=== PATIENT | male | born 1960 | race Caucasian/White ===

== ENCOUNTER 2019-02-23 00:11 | Outpatient (CLI) | payer OTHER, SELFPAY ==
--- NOTE | 2019-02-23 08:45 | DI.RAD_ITS ---
SYMPTOMS/DIAGNOSIS: WORSENING DYSPHAGIA, R13.10 MODIFIED BARIUM SWALLOW: Fluoroscopy Time: 1.22 min Modified barium swallow was performed under the supervision of Jess Perez. A series of ingested material passed easily through the pharynx and esophagus. No gross esophageal abnormality is seen. Initially the pharynx appeared to contain a large quantity of secretions and the mucosa could not be evaluated. CONCLUSION: No evidence of obstruction. The anatomy of the pharynx and larynx is not well evaluated, and if there is clinical suspicion of pharyngeal abnormality, additional evaluation with direct laryngoscopy would be recommended.
[2019-02-23] MEDS: Barium Sulfate 60% W/V 355 ML BTL PO ×2 (09:19→09:20)
[2019-02-23] MEDS: Barium Sulfate 700 MG TAB PO (09:21)
== END 2019-02-23 00:31 ==
PROVIDERS: PCP Nurse Practitioner Adult Health; Visit Provider Otolaryngology Otolaryngology/Facial Plastic Surgery
DX: R13.10 Dysphagia, unspecified (principal)
CPT/HCPCS: 76000; 74220

== ENCOUNTER 2019-02-23 01:14 | Outpatient (CLI) | payer OTHER, SELFPAY | END 2019-02-23 01:34 | PROVIDERS: PCP Nurse Practitioner Adult Health | DX: R13.14 Dysphagia, pharyngoesophageal phase (principal); R13.12 Dysphagia, oropharyngeal phase | CPT/HCPCS: 92611 ==

== ENCOUNTER 2023-04-15 14:31 | Inpatient (IN) | payer MEDICAID, SELFPAY ==
[2023-04-15] VITALS (85 sets, daily range): BP systolic 105–186; BP diastolic 51–103; PULSE 60–90; RESP 13–30; TEMP 36.8–37; O2SAT 87–100
--- NOTE | 2023-04-15 14:30 | RT.EKG_ITS ---
APPROVED REPORT Exam: Resting ECG Reason for Exam: Syncope Patient Location: E HR:84 bpm ECG Measurements Heart Rate 84 AXIS RI 134 P 31 QRSd 94 QRS -55 QT 368 T 53 QTc 427 Conclusion Sinus rhythm...normal P axis, V-rate 60- 99 Multiform ventricular premature complexes...short R-R, variable morphology Left anterior fascicular block...axis(240,-40), init forces inf sinus rhythm, left axis, normal intervals, PVC, non ischemic
--- NOTE | 2023-04-15 14:30 | DI.RAD_ITS ---
Exam(s) XR CHEST 2V PA LATERAL EXAM: XR CHEST 2V PA LATERAL CLINICAL HISTORY: syncope. TECHNIQUE: 2D digital imaging was performed. COMPARISON: No exams were available for comparison FINDINGS: 2 views: Heart size is normal. The mediastinum is not widened. Lungs are clear. No infiltrates nor pleural effusions. IMPRESSION: No acute pulmonary findings. DATA REPOSITORY: RADIATION DOSE DELIVERED:
--- NOTE | 2023-04-15 14:40 | ED.GENADUL_ITS ---
Discharge Plan Discharge Details Chief Complaint: [id number] Primary Care Provider: Antonia Falcon ED Provider: Woodrow Dugan Home Meds and New Rx's Prescriptions: No Action aspirin [Olvin Low Dose Aspirin] 81 MG tablet,delayed release (DR/EC) 81 mg PO DAILY ranitidine HCl 75 MG tablet 75 mg PO DAILY Patient Comments: PT STATES HE DOES NOT TAKE ANY LONGER pantoprazole 40 MG tablet,delayed release (DR/EC) 40 mg PO DAILY venlafaxine 150 mg Capsule,Extended Release 24hr 150 mg PO DAILY melatonin 3 mg Tablet 6 mg PO DAILY tamsulosin 0.4 mg Capsule 0.4 mg PO DAILY calcium carbonate [Calcium Antacid] 200 mg calcium (500 mg) Tablet,Chewable 1,000 mg PO PRN PRN Medical Decision Making 62-year-old male brought in from correctional facility for evaluation of syncopal episode and left upper extremity numbness/paresthesia that began in the setting of activity in the yard and direct sun exposure approximately 1 to 2 hours ago. Brief syncopal spell with loss of consciousness sustaining superficial abrasion hematoma to left frontal scalp hemostatic no foreign bodies. Patient is alert oriented cranial nerves II through XII intact 5 out of 5 strength upper and lower extremities no ataxia appreciated. Patient feeling better with resolving paresthesia. Likely heat related syncopal also consider vasovagal versus orthostatic versus dehydration versus mild heatstroke versus less likely CVA versus less likely ACS PE or aortic pathology. Patient is afebrile nontoxic normotensive. Neurologically intact. Will obtain screening labs imaging clinic CT head chest x-ray, EKG. Fluids rest close reassessment if continued improvement and normal evaluation will be discharged to correctional facility 16: [address] findings with radiologist who was concerned for abnormality in right basal ganglia. Stat MRI has been ordered. Disposition pending MRI results. HPI General Date/Time Provider Initiated Documentation: 04/15/23 14:34 . HPI Narrative: 62-year-old male currently incarcerated, brought in for evaluation of syncopal episode, patient was outside in the yard in direct sun for extended period of time felt lightheaded felt a tingling on the left side of his body specifically his left upper extremity collapsed to the ground hitting his head brief loss of consciousness, after regaining consciousness patient had resolving but persistent left upper extremity numbness. 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 Feeling better/improvement of symptoms from initial onset. No chest pain or shortness of breath. No history of cardiac disease or stroke in the past. No blood thinner use. Related Data Home Medications Medication Instructions Recorded Confirmed Olvin Low Dose Aspirin 81 mg 81 mg PO DAILY 10/05/17 10/29/17 tablet,delayed release (aspirin) ranitidine HCl 75 mg tablet 75 mg PO DAILY 10/05/17 10/29/17 pantoprazole 40 mg tablet,delayed 40 mg PO DAILY 10/29/17 04/15/23 release calcium carbonate 200 mg calcium 1,000 mg PO PRN PRN 04/15/23 04/15/23 (500 mg) chewable tablet (Calcium Antacid) melatonin 3 mg tablet 6 mg PO DAILY 04/15/23 04/15/23 tamsulosin 0.4 mg capsule 0.4 mg PO DAILY 04/15/23 04/15/23 venlafaxine 150 mg 150 mg PO DAILY 04/15/23 04/15/23 capsule,extended release 24 hr Allergies Allergy/AdvReac Type Severity Reaction Status Date / Time No Known Allergies Allergy Unverified 04/15/23 14:38 General Stated Complaint: [id number] JULISSA: 3 Review of Systems Narrative: Review of Systems Constitutional: negative Eyes: negative ENT: negative Cardiovascular: Syncope Respiratory: negative Gastrointestinal: negative : negative Musculoskeletal: negative Skin: negative Neurologic: Paresthesia/numbness of extremity left Psych: negative PFSH Medical History Congenital hand deformity GERD (gastroesophageal reflux disease) Surgical History (Updated 11/10/17 @ 13:21 by Johana Moraes) Appendectomy EGD - MAC (10/29/17) Reconstruction right hand Social History Smoking/Tobacco Use Status: Never Smoking risk assessment performed?: Yes Drug use: Never Exam Narrative Exam Narrative: Physical Examination General: alert, awake, cooperative, resting comfortably, no acute distress HEENT: normocephalic, 4 cm left frontal scalp hematoma with overlying abrasion hemostatic no foreign bodies; PERRL, EOM intact, conjunctiva normal; no nasal discharge; moist mucous membranes, oral and pharyngeal mucosa normal, tolerating secretions Neck: supple, trachea midline; full ROM Chest: normal to inspection Respiratory: normal respiratory effort, speaking in full sentences, clear to auscultation, no wheezing, rales or rhonchi Cardiac: regular rate, regular rhythm, S1S2 intact, no murmurs rubs or gallops GI: abdomen soft, non-tender, non-distended; no palpable mass or hepatosplenomegaly Skin: no lesions, rashes or trauma appreciated Neuro: AAOx3, normal speech, moving all extremities; cranial nerves II through XII intact 5-5 strength upper and lower extremities, no ataxia appreciated Extremities: No trauma, moving all extremities Psych: Appropriate mood and affect Course Vital Signs Vital signs: Vital Signs Temperature 37.0 C 04/15/23 14:32 Pulse 81 04/15/23 14:32 Respiratory Rate 16 04/15/23 14:32 Blood Pressure 138/77 04/15/23 14:32 Pulse Oximetry 99 04/15/23 14:32 Temperature 37.0 C 04/15/23 14:32 Temperature Source Oral 04/15/23 14:32 Pulse 81 04/15/23 14:32 Respiratory Rate 16 04/15/23 14:32 Blood Pressure 138/77 04/15/23 14:32 Pulse Oximetry 99 04/15/23 14:32 Oxygen Delivery Method Room Air 04/15/23 14:32 Oxygen Flow Rate 0 04/15/23 14:32
[2023-04-15] MEDS: Normal Saline 1,000 ML 1000 ML IV (14:51)
[2023-04-15 14:58] LABS: Abs Immature Grans 0.01 10^3/uL (0.0-0.06); Absolute Basophil Count 0.02 10^3/uL (0.0-0.2); Absolute Eosinophil Count 0.09 10^3/uL (0.0-0.7); Absolute Lymphocyte Count 0.97 10^3/uL (1.2-3.4); Absolute Monocyte Count 0.54 10^3/uL (0.1-0.8); Absolute Neutrophil Count 4.35 10^3/uL (1.2-6.7); Basophils % 0.3; Eosinophils % 1.5; HCT 44.2 % (40.0-50.0); HGB 15.2 g/dL (13.5-17.5); Immature Grans % 0.2; Lymphocytes % 16.2; MCH 31.5 pg (27.0-33.0); MCHC 34.4 % (32.0-36.0); MCV 92 fL (80-95); MPV 10.4 fL (8.0-11.0); Neutrophils % 72.8; Platelet Count 214 10^3/uL (130-400); RBC 4.83 10^6/uL (4.36-5.78); RDW 12.4 % (11.8-14.1); RDW-SD 41.8 fL; WBC 5.98 10^3/uL (4.4-10.8)
[2023-04-15 15:16] LABS: PTT Activated 22.7 sec (21.5-31.9); Prothrombin Time 9.7 sec (9.3-11.0)
--- NOTE | 2023-04-15 15:16 | DI.CT_ITS ---
Exam(s) CT HEAD WO EXAM: CT HEAD WO CLINICAL HISTORY: syncope, left frontal scalp abrasion/hematoma. TECHNIQUE: Imaging Protocol: Axial computed tomography images with coronal and sagittal reformatted images were created and reviewed COMPARISON: No exams were available for comparison FINDINGS: SMALL LEFT FRONTAL SCALP HEMATOMA. There are no skull fractures. There is no fluid in the visualized paranasal sinuses. There is a 9 x 6 mm hyperdensity in region of the right basal ganglia without similar finding on the left side. May represent area of hemorrhage, as opposed to calcification. No other similar appearin g areas in the brain. No extra-axial fluid collections. Ventricles are not enlarged or shifted and there is no blood within the ventricular system nor within the basal cisterns. IMPRESSION: There is a 9 x 6 millimeter area of hyperdensity in the right basal ganglia region. May represent sm all area of hemorrhage versus asymmetric calcification. Recommend MRI. Called by myself to ER physician. RADIATION DOSE DELIVERED: 786.31mGy.cm Total DLP DATA REPOSITORY: All CT scans at this facility are submitted to the National Radiology Data Registry (NRDR) Dose Index Registry (DIR) with the [employer] (ACR). RADIATION OPTIMIZATION: All CT scans at this facility use at least one of these dose optimization te chniques: automated exposure control; mA and/or kV adjustment per patient size (includes targeted exa ms where dose is matched to clinical indication); or iterative reconstruction.
[2023-04-15 15:18] LABS: Creatine Kinase 47 U/L (39-308); Troponin I < 50 ng/L (<or=60)
[2023-04-15 15:25] LABS: ALT 18 U/L (16-63); AST 15 U/L (15-37); Albumin 3.8 g/dL (3.4-5.0); Alkaline Phosphatase 47 U/L (46-116); Anion Gap 9.9 mmol/L (3-11); BUN 18 mg/dL (7-18); Bilirubin, Total 0.5 mg/dL (0.2-1.0); CO2 29.1 mmol/L (21.0-32.0); CREATININE 1.2 mg/dL (0.70-1.30); Calcium 9.5 mg/dL (8.5-10.1); Chloride 103 mmol/L (98-107); Glucose 152 mg/dL (74-106); Potassium 4.1 mmol/L (3.5-5.1); Sodium 142 mmol/L (136-145); Total Protein 7.8 g/dL (6.4-8.2)
--- NOTE | 2023-04-15 15:30 | DI.MRI_ITS ---
Exam(s) MR BRAIN WO EXAM: MR BRAIN WO CLINICAL HISTORY: LUE numb; right basal ganglia abnormality on CT TECHNIQUE: Multiplanar multisequence MRI of the brain was performed. COMPARISON: No exams were available for comparison FINDINGS: CEREBRAL PARENCHYMA: There is an area of signal abnormality the medial inferior right basal ganglia-anterior right thalamu s which is hypointense on T2, isointense on T1, and exhibits significant susceptibility artifact cons istent with focal area of hemorrhage at this level corresponding to the finding on the CT scan. No o ther similar findings elsewhere in the brain. There are few small foci of periventricular white matter signal abnormality consistent with chronic i schemic changes. No areas of restricted diffusion. There is no significant focal signal abnormality evident on diffusion imaging to suggest acute ischem ic event. PITUITARY GLAND: No mass nor parasellar abnormality. No obvious abnormality in the cavernous sinuses. FLOW VOIDS: The expected flow void are noted. No evidence of obvious aneurysm nor obvious vascular ma lformation. PARANASAL SINUSES: The visualized paranasal sinuses appear unremarkable. No obvious finding ORBITS: No obvious findings. IMPRESSION: Area of signal abnormality in the anterior right thalamus which exhibits signal characteristics of ac [place] hemorrhage. No significant surrounding edema. No shift. Recommend repeat CT/MRI scan in 24 rahel rs. DATA REPOSITORY:
[2023-04-15] MEDS: Labetalol 100 MG/20 ML VIAL 10 MG IVP ×2 (17:33→18:30)
[2023-04-15 18:56] LABS: Troponin I < 50 ng/L (<or=60)
--- NOTE | 2023-04-15 19:15 | DI.CT_ITS ---
Exam(s) CT BRAIN NECK CTA EXAM: CT BRAIN NECK CTA CLINICAL HISTORY: thalamus hemorrhage. TECHNIQUE: Imaging Protocol: Axial CT angiography was performed with multi-slice acquisition and mu lti-planar and 3D reconstructions. CONTRAST MATERIAL: Intravenous: Omnipaque 350 Contrast volume:structured data in ml COMPARISON: CT CT HEAD WO from 04/15/2023 MR MR BRAIN WO from 04/15/2023 FINDINGS: CT Head W contrast: Ventricles and Extra axial spaces: Normal in size and morphology for the patient's age. Hemorrhage: Small right thalamic hemorrhage again noted. Cerebral parenchyma: Normal. Midline shift: None. Brainstem/Cerebellum: Normal. Calvarium: Normal. Visualized Paranasal sinuses/Mastoids: Clear. Soft Tissues: Unremarkable. Enhancement: Normal. CTA Brain W: Internal Carotid Arteries: Petrous: Normal. Cavernous: Normal. Cerebral: Normal. Middle Cerebral Arteries: Right: No aneurysm, occlusion or significant stenosis. Left: No aneurysm, occlusion or significant stenosis. Anterior Cerebral Arteries: Right: No aneurysm, occlusion or significant stenosis. Left: No aneurysm, occlusion or significant stenosis. Posterior cerebral Arteries: Right: No aneurysm, occlusion or significant stenosis. Left: No aneurysm, occlusion or significant stenosis. Vertebral Arteries: Right: No aneurysm, occlusion or significant stenosis. Left: Hypoplastic but patent. No aneurysm, occlusion or significant stenosis. Basilar Artery: No aneurysm, occlusion or significant stenosis. CTA Neck W: Common Carotid: No visible plaque. Right: No dissection, occlusion or significant stenosis. Left: No dissection, occlusion or significant stenosis. External Carotid: No visible plaque. Right: No dissection, occlusion or significant stenosis. Left: No dissection, occlusion or significant stenosis. Internal Carotid: No visible plaque. Right: No dissection, occlusion or significant stenosis. Left: No dissection, occlusion or significant stenosis. Vertebral Artery: No visible plaque. Right: No dissection, occlusion or significant stenosis. Left: Hypoplastic but patent. No dissection, occlusion or significant stenosis. Lung Apices: Normal. Bones: Degenerative changes in the cervical spine. No acute abnormality. Soft Tissues: Normal. IMPRESSION: 1. CT a brain: Normal CTA examination of the [place]. 2. CT head: Small right thalamic hemorrhage. No evidence of AV malformation. 3. Normal CTA examination of the neck. RADIATION DOSE DELIVERED: 1,256.56mGy.cm Total DLP DATA REPOSITORY: All CT scans at this facility are submitted to the National Radiology Data Registry (NRDR) Dose Index Registry (DIR) with the [employer] (ACR). RADIATION OPTIMIZATION: All CT scans at this facility use at least one of these dose optimization te chniques: automated exposure control; mA and/or kV adjustment per patient size (includes targeted exa ms where dose is matched to clinical indication); or iterative reconstruction.
--- NOTE | 2023-04-15 19:17 | NUR.NOTE ---
@[email or web address] ordered from [facility]. Medication unavailable on unit. Goal MAP per CLAY Palomo is systolic 130
[2023-04-15] MEDS: Normal Saline - Diluent 50 ML VIAL IJ (19:46)
[2023-04-15] MEDS: Normal Saline Flush 10 ML SYR IVP (19:47)
[2023-04-15] MEDS: Omnipaque 350 MG/ML 100 ML BTL IJ (19:47)
--- NOTE | 2023-04-15 20:15 | RT.EKG_ITS ---
APPROVED REPORT Exam: Resting ECG Reason for Exam: repeat Patient Location: E HR:75 bpm ECG Measurements Heart Rate 75 AXIS OH 153 P 32 QRSd 101 QRS -44 QT 394 T 31 QTc 441 Conclusion Sinus rhythm...normal P axis, V-rate 60- 99 Ventricular premature complex...V complex w/ short R-R interval Left anterior fascicular block...axis(240,-40), init forces inf
--- NOTE | 2023-04-15 20:15 | RT.EKG_ITS ---
APPROVED REPORT Exam: Resting ECG Reason for Exam: rhythm change Patient Location: E HR:68 bpm ECG Measurements Heart Rate 68 AXIS ID 140 P 0 QRSd 113 QRS -45 QT 402 T 260 QTc 436 Conclusion Sinus rhythm...normal P axis, V-rate 60- 99 Ventricular premature complex...V complex w/ short R-R interval Left anterior fascicular block...axis(240,-40), init forces inf Nonspecific T abnormalities, diffuse leads...T <-0.10mV, ant/lat/inf
[2023-04-15] MEDS: niCARdipine 25 MG in Normal Saline 240 ML 5 MG IV (20:30)
--- NOTE | 2023-04-15 20:40 | NUR.NOTE ---
@2009. Heart rhythm change. Pt now in bigeminy. C/o feeling increased dizziness when my eyes are closed Reported to CLAY Palomo.
--- NOTE | 2023-04-15 20:43 | DI.VRAD_ITS ---
PROCEDURE INFORMATION: Exam: CTA Head With Contrast, Arteriography Exam date and time: 04/15/2023 7:47 PM Age: 62 years old Clinical indication: Thalamus hemorrhage TECHNIQUE: Imaging protocol: Computed tomographic angiography of the head with contrast. Exam focused on the arteries. 3D rendering (Not supervised by radiologist): MIP and/or 3D reconstructed images were created by the technologist. Contrast material: OMNIPAQUE 350; Contrast volume: 100 ml; Contrast route: INTRAVENOUS (IV); COMPARISON: MR BRAIN WO 04/15/2023 3:55 PM FINDINGS: ANTERIOR CIRCULATION: Right internal carotid artery: Intracranial segment is patent with no significant stenosis. No aneurysm. Right middle cerebral artery: No occlusion or significant stenosis. No aneurysm. Right anterior cerebral artery: No occlusion or significant stenosis. No aneurysm. Left internal carotid artery: Intracranial segment is patent with no significant stenosis. No aneurysm. Left middle cerebral artery: No occlusion or significant stenosis. No aneurysm. Left anterior cerebral artery: No occlusion or significant stenosis. No aneurysm. POSTERIOR CIRCULATION: Right vertebral artery: No occlusion or significant stenosis. No aneurysm. Left vertebral artery: The left vertebral artery is hypoplastic. Basilar artery: No occlusion or significant stenosis. No aneurysm. Right posterior cerebral artery: No occlusion or significant stenosis. No aneurysm. Left posterior cerebral artery: No occlusion or significant stenosis. No aneurysm. Brain: No definite mass effect or midline shift. Cerebral ventricles: No ventriculomegaly. Bones/joints: Unremarkable. No acute fracture. Soft tissues: Subcutaneous swelling noted in the left frontal region. IMPRESSION: 1. No evidence of arterial stenosis or occlusion. 2. No aneurysm or vascular malformation. PROCEDURE INFORMATION: Exam: CTA Neck With Contrast Exam date and time: 04/15/2023 7:47 PM Age: 62 years old Clinical indication: Other: Thalamus hemorrhage TECHNIQUE: Imaging protocol: Computed tomographic angiography of the neck with contrast. 3D rendering (Not supervised by radiologist): MIP and/or 3D reconstructed images were created by the technologist. Contrast material: OMNIPAQUE 350; Contrast volume: 100 ml; Contrast route: INTRAVENOUS (IV); COMPARISON: MR BRAIN WO 04/15/2023 3:55 PM FINDINGS: Right common carotid artery: No stenosis. No dissection or occlusion. Right internal carotid artery: No stenosis of the extracranial segment. No dissection or occlusion. Right external carotid artery: No occlusion or stenosis of the origin. Left common carotid artery: No stenosis. No dissection or occlusion. Left internal carotid artery: No stenosis of the extracranial segment. No dissection or occlusion. Left external carotid artery: No occlusion or stenosis of the origin. Right vertebral artery: No stenosis. No dissection or occlusion. Left vertebral artery: No stenosis. No dissection or occlusion. Soft tissues: Normal. No significant soft tissue swelling. Bones/joints: No acute fracture. IMPRESSION: No stenosis or occlusion. REFERENCES: NASCET CRITERIA. The degree of stenosis in the cervical segment of the internal carotid artery is based on NASCET criteria. Normal is no stenosis. Mild is less than 50% stenosis. Moderate is 50-69% stenosis. Severe is 70% to 99% stenosis. Total occlusion is no detectable patent lumen. Dictated and Authenticated by: Karolnie Owusu MD. Ordering:PAT Palomo MD
--- NOTE | 2023-04-15 21:38 | HPE_ITS ---
Date of service: 04/15/23 Time of Service: 21:38 Assessment and Plan Assessment and plan (1) Hemorrhagic cerebrovascular accident (CVA): Start date: 04/15/23 Status: Acute Assessment and plan: This is a 62-year-old gentleman who had sudden onset of neurological deficit symptoms in his left upper extremity and collapse with syncope most likely with the syncope associated with his acute CVA. He had no symptoms prior to the event other than being exposed to extreme heat in the yard at the shelter. He denies any diaphoresis or dizziness but simply passed out and hit the ground without having memory of that event. He did have an abrasion over his left fo rehead which appears without sequela by imaging. Since there was some suggestion of hemorrhage on MRI of the brain follow-up CT was done which shows stability of the right thalamic stroke and he will have a follow-up CT of the head in the morning. He has been observed with telemetry and neurochecks every 2 hours. His risk factors for thrombotic CVA appear to be low but he was not on aspirin and he may have prediabetes and sleep apnea by history but no chronic hypertension documented and and he is not overweight. He also is not a smoker. He was given a high-dose atorvastatin which will be continued and once cleared by neurology he could start on a antiplatelet therapy such as aspirin. His hemorrhage at this point and have his use of anticoagulation or antiplatelet therapy. His blood pressure was elevated and will be controlled with a systolic below 140 but keep the systolic above 100 to avoid extension of his area of stroke. He is a full code. (2) Syncope and collapse: Start date: 04/15/23 Status: Acute Assessment and plan: As a consequence of CVA but monitor cardiac rhythm overnight and follow-up echocardiogram with bubble study for further evaluation in the morning. (3) HTN (hypertension): Start date: 04/15/23 Status: Acute Assessment and plan: No history of hypertension as an outpatient but elevated systolic blood pressure with his acute CVA and with hemorrhage this will be controlled with systolic below 140 but above 100. Patient was started on a Cardene infusion. Titrate to systolic blood pressure. Long-term he may require treatment for hypertension but this can be evaluated once he is stable. Follow-up echocardiogram. Cardiac monitoring overnight. (4) Congenital hand deformity: Assessment and plan: With dysfunction of patient's right hand being [id number]. He did have neurological symptoms in his left lower extremity but this did not include weakness and this has resolved. Physical therapy and Occupational Therapy will evaluate. (5) GERD (gastroesophageal reflux disease): Assessment and plan: Continue PPI. 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 (7) Depression with anxiety: Status: Chronic Assessment and plan: Patient is on Effexor chronically and this will be continued. He did have some concerns that this might be causing ringing in his ears and he can address this with his PCP. History of Present Illness History of Present Illness Chief Complaint: Left upper extremity numbness and syncopal episode. Narrative: This is a 62-year-old male patient who has a history of GERD, BPH with CEBALLOS and borderline diabetes though not on medical therapy as well as possible sleep apnea with loud snoring and apneic spells witnessed by his roommate at the shelter. He is not overweight. He has been incarcerated for the last 6 years. He was going to the [facility] in the past. He has never had hypertension and is not a smoker. He was walking in the yard at the facility and extreme heat being over 90 ?F when he felt tingling and numbness in his left upper extremity which is his dominant hand having had a deformity since and surgery on his right hand and upper extremity which is not as usable. After the onset of these neurological symptoms he had a syncopal episode and does not remember hitting the ground where he struck his left head with an abrasion and contusion. He was brought to the ED for evaluation and CT showed no sequela from his fall over his forehead other than the abrasion and soft tissue swelling but he did have what appeared to be a right thalamic stroke in the basal ganglia with a small amount of hemorrhage confirmed by MRI. CTA of the head and neck showed no large vessel occlusions. Repeat CT of the head was stable and will be repeated again in the morning. Neurology was consulted and did advise blood pressure control with the patient having elevated systolic blood pressure above 140 with a hemorrhage and he was started on a Cardene infusion with labetalol not being effective in the ED. He is not chronically on antihypertensives. He denies any headache other than the soreness around his contusion over the left upper scalp and forehead. His numbness and tingling in left upper extremity resolved. Patient will be admitted for frequent neurochecks and follow-up CT of the head in the morning as well as monitoring of his cardiac status and echocardiogram. He will be placed on high-dose statin and blood pressure control long-term may be accomplished with metoprolol if needed. He should be evaluated for sleep apnea this is one of his risk factors and watch more closely for hypertension though he has had no elevated blood pressures with follow-up in the facility. His only other risk factor would be his borderline diabetes which could be evaluated. He has a full code. Review of Systems Narrative: 13 point review of systems otherwise unrevealing or stable. PFSH All Active Problems (Updated 04/16/23 @ 01:28 by Miguel Deshpande) Depression with anxiety (Chronic) BPH with obstruction/lower urinary tract symptoms (Chronic) Syncope and collapse (Acute) HTN (hypertension) (Acute) Hemorrhagic cerebrovascular accident (CVA) (Acute) Medical History Congenital hand deformity GERD (gastroesophageal reflux disease) Surgical History Appendectomy EGD - MAC (10/29/17) Reconstruction right hand Social History Smoking/Tobacco Use Status: Never Smoking risk assessment performed?: Yes Drug use: Never Meds Allergies and Home Medications Allergies Allergy/AdvReac Type Severity Reaction Status Date / Time No Known Allergies Allergy Unverified 04/15/23 14:38 Home Medications Medication Instructions Recorded Confirmed Type Olvin Low Dose Aspirin 81 mg 81 mg PO DAILY 10/05/17 10/29/17 History tablet,delayed release (aspirin) ranitidine HCl 75 mg tablet 75 mg PO DAILY 10/05/17 10/29/17 History pantoprazole 40 mg tablet,delayed 40 mg PO DAILY 10/29/17 04/15/23 History release calcium carbonate 200 mg calcium 1,000 mg PO PRN PRN 04/15/23 04/15/23 History (500 mg) chewable tablet (Calcium Antacid) melatonin 3 mg tablet 6 mg PO DAILY 04/15/23 04/15/23 History tamsulosin 0.4 mg capsule 0.4 mg PO DAILY 04/15/23 04/15/23 History venlafaxine 150 mg 150 mg PO DAILY 04/15/23 04/15/23 History capsule,extended release 24 hr Exam Narrative Exam Narrative: General: Patient appears appropriate for age, thinly built and short stature, alert and oriented x3 with some slowed speech but appropriate. He is in no acute distress. HEENT: Normocephalic, traumatic head over the left forehead with an abrasion with dried blood and slight swelling otherwise atraumatic face with normal features. Eyes with pupils equal and react to light symmetrically, extraocular movement tact and sclera anicteric. Oropharynx with moist mucosa and normal dentition. Neck: Supple without JVD and no auscultated bruits. Back: Stooped posture without CVA tenderness. Lungs: Clear to auscultation and percussion with no focalizing rales or rhonchi. Heart: Regular rate and rhythm with no murmurs or gallops appreciated. Abdomen: Normal contour, soft and nontender to palpation with no palpable hepatosplenomegaly. Bowel sounds positive all quadrants. Genitalia/rectal: Exam deferred. Extremities: Without clubbing, cyanosis or pitting edema. There is slight flexion contracture and atrophy with deformity of his right hand and forearm where he has had corrective surgery with a defect by history. Pulses are intact of the upper and lower extremities. Skin: Normal color, warm and dry. Abrasion over left forehead and scalp with dried blood. Neuro: Cranial nerves II through XII grossly intact. No focalizing motor deficits except for the chronic weakness in his right distal upper extremity. No tremor. No Babinski's. Psych: Slightly anxious affect with pressured speech, normal mood. No abnormal thought processes. Remote and recent memory appear to be grossly intact. Results Imaging Imaging Studies: Exam: CTA Head With Contrast, Arteriography Exam date and time: 04/15/2023 7:47 PM Age: 62 years old Clinical indication: Thalamus hemorrhage TECHNIQUE: Imaging protocol: Computed tomographic angiography of the head with contrast. Exam focused on the arteries. 3D rendering (Not supervised by radiologist): MIP and/or 3D reconstructed images were created by the technologist. Contrast material: OMNIPAQUE 350; Contrast volume: 100 ml; Contrast route: INTRAVENOUS (IV);? COMPARISON: MR BRAIN WO 04/15/2023 3:55 PM FINDINGS: ANTERIOR CIRCULATION: Right internal carotid artery: Intracranial segment is patent with no significant stenosis. No aneurysm. Right middle cerebral artery: No occlusion or significant stenosis. No aneurysm.? Right anterior cerebral artery: No occlusion or significant stenosis. No aneurysm.? Left internal carotid artery: Intracranial segment is patent with no significant stenosis. No aneurysm. Left middle cerebral artery: No occlusion or significant stenosis. No aneurysm. ? Left anterior cerebral artery: No occlusion or significant stenosis. No aneurysm.? POSTERIOR CIRCULATION: Right vertebral artery: No occlusion or significant stenosis. No aneurysm.? Left vertebral artery: The left vertebral artery is hypoplastic. Basilar artery: No occlusion or significant stenosis. No aneurysm. Right posterior cerebral artery: No occlusion or significant stenosis. No aneurysm.? Left posterior cerebral artery: No occlusion or significant stenosis. No aneurysm.? Brain: No definite mass effect or midline shift. Cerebral ventricles: No ventriculomegaly. Bones/joints: Unremarkable. No acute fracture. Soft tissues: Subcutaneous swelling noted in the left frontal region. IMPRESSION: 1. ? No evidence of arterial stenosis or occlusion. 2. ? No aneurysm or vascular malformation. PROCEDURE INFORMATION: Exam: CTA Neck With Contrast Exam date and time: 04/15/2023 7:47 PM Age: 62 years old Clinical indication: Other: Thalamus hemorrhage TECHNIQUE: Imaging protocol: Computed tomographic angiography of the neck with contrast. 3D rendering (Not supervised by radiologist): MIP and/or 3D reconstructed images were created by the technologist. Contrast material: OMNIPAQUE 350; Contrast volume: 100 ml; Contrast route: INTRAVENOUS (IV);? COMPARISON: MR BRAIN WO 04/15/2023 3:55 PM FINDINGS: Right common carotid artery: No stenosis. No dissection or occlusion. Right internal carotid artery: No stenosis of the extracranial segment. No dissection or occlusion. Right external carotid artery: No occlusion or stenosis of the origin.? Left common carotid artery: No stenosis. No dissection or occlusion. Left internal carotid artery: No stenosis of the extracranial segment. No dissection or occlusion. Left external carotid artery: No occlusion or stenosis of the origin.? Right vertebral artery: No stenosis. No dissection or occlusion. Left vertebral artery: No stenosis. No dissection or occlusion. Soft tissues: Normal. No significant soft tissue swelling. Bones/joints: No acute fracture. IMPRESSION: No stenosis or occlusion. EXAM: ? MR BRAIN WO CLINICAL HISTORY:? LUE numb; right basal ganglia abnormality on CT TECHNIQUE:? Multiplanar multisequence MRI of the brain was performed. COMPARISON:? No exams were available for comparison FINDINGS: CEREBRAL PARENCHYMA: There is an area of signal abnormality the medial inferior right basal ganglia-anterior right thalamus which is hypointense on T2, isointense on T1, and exhibits significant susceptibility artifact consistent with focal area of hemorrhage at this level corresponding to the finding on the CT scan.? No other similar findings elsewhere in the brain. There are few small foci of periventricular white matter signal abnormality consistent with chronic ischemic changes.? No areas of restricted diffusion. There is no significant focal signal abnormality evident on diffusion imaging to suggest acute ischemic event. PITUITARY GLAND: No mass nor parasellar abnormality. No obvious abnormality in the cavernous sinuses. FLOW VOIDS: The expected flow void are noted. No evidence of obvious aneurysm nor obvious vascular malformation. PARANASAL SINUSES: The visualized paranasal sinuses appear unremarkable. No obvious finding ORBITS: No obvious findings. IMPRESSION: Area of signal abnormality in the anterior right thalamus which exhibits signal characteristics of acute hemorrhage.? No significant surrounding edema.? No shift.? Recommend repeat CT/MRI scan in 24 hours. Exam(s) CT HEAD WO EXAM: ? CT HEAD WO CLINICAL HISTORY: ? syncope, left frontal scalp abrasion/hematoma. ? TECHNIQUE:? Imaging Protocol: Axial computed tomography images with coronal and sagittal reformatted images were created and reviewed COMPARISON:? No exams were available for comparison FINDINGS: SMALL LEFT FRONTAL SCALP HEMATOMA. There are no skull fractures. There is no fluid in the visualized paranasal sinuses. There is a 9 x 6 mm hyperdensity in region of the right basal ganglia without similar finding on the left side.? May represent area of hemorrhage, as opposed to calcification.? No other similar appearing areas in the brain.? No extra- axial fluid collections.? Ventricles are not enlarged or shifted and there is no blood within the ventricular system nor within the basal cisterns. IMPRESSION: There is a 9 x 6 millimeter area of hyperdensity in the right basal ganglia region.? May represent small area of hemorrhage versus asymmetric calcification.? Recommend MRI. EXAM:? XR CHEST 2V PA ? LATERAL CLINICAL HISTORY: ? syncope. ? TECHNIQUE:? 2D digital imaging was performed. COMPARISON:? No exams were available for comparison FINDINGS: 2 views: Heart size is normal.? The mediastinum is not widened. Lungs are clear.? No infiltrates nor pleural effusions. IMPRESSION: No acute pulmonary findings. Labs 04/15/23 14:51 04/15/23 14:51 Labs: Laboratory Results - last 24 hr 04/15/23 04/15/23 04/15/23 14:51 14:51 14:51 WBC 5.98 RBC 4.83 Hgb 15.2 Hct 44.2 MCV 92 MCH 31.5 MCHC 34.4 RDW 12.4 Plt Count 214 MPV 10.4 Immature Gran % 0.2 Neutrophils % 72.8 Lymphocytes % 16.2 Monocytes % 9.0 Eosinophils % 1.5 Basophils % 0.3 Nucleated RBC % 0.0 Absolute Neutrophils 4.35 Absolute Lymphocytes 0.97 L Absolute Monocytes 0.54 Absolute Eosinophils 0.09 Absolute Basophils 0.02 PT INR APTT VBG pH VBG pCO2 VBG pO2 VBG HCO3 VBG Total CO2 VBG O2 Saturation VBG Base Excess Sodium 142 Potassium 4.1 Chloride 103 Carbon Dioxide 29.1 Anion Gap 9.9 BUN 18 Creatinine 1.2 Est GFR (CKD-EPI 2020) 68.80 Glucose 152 H Calcium 9.5 Total Bilirubin 0.5 AST 15 ALT 18 Alkaline Phosphatase 47 Creatine Kinase 47 Troponin I < 50 Total Protein 7.8 Albumin 3.8 04/15/23 04/15/23 04/15/23 14:51 17:25 18:26 WBC RBC Hgb Hct MCV MCH MCHC RDW Plt Count MPV Immature Gran % Neutrophils % Lymphocytes % Monocytes % Eosinophils % Basophils % Nucleated RBC % Absolute Neutrophils Absolute Lymphocytes Absolute Monocytes Absolute Eosinophils Absolute Basophils PT 9.7 INR 1.0 APTT 22.7 VBG pH Cancelled VBG pCO2 Cancelled VBG pO2 Cancelled VBG HCO3 Cancelled VBG Total CO2 Cancelled VBG O2 Saturation Cancelled VBG Base Excess Cancelled Sodium Potassium Chloride Carbon Dioxide Anion Gap BUN Creatinine Est GFR (CKD-EPI 2020) Glucose Calcium Total Bilirubin AST ALT Alkaline Phosphatase Creatine Kinase Troponin I < 50 Total Protein Albumin Last Vital Signs Temp 36.8 C 04/15/23 19:15 Pulse 66 04/15/23 19:15 Resp 22 04/15/23 19:15 BP 150/73 H 04/15/23 19:15 Pulse Ox 100 04/15/23 19:15 Time Spent Time spent with Patient: >75 minutes Time was spent: preparing to see the patient(eg.review tests), obtaining and/or reviewing separately otained hiistory, ordering medications,tests, procedures, referring, communicating with other health home health care worker, indepentently interpreting results, counseling the patient and care coordination
[2023-04-16] VITALS (163 sets, daily range): BP systolic 119–174; BP diastolic 61–113; PULSE 61–101; RESP 12–37; TEMP 36.7–37.6; O2SAT 93–100
[2023-04-16] MEDS: Atorvastatin 40 MG TAB 80 MG PO ×2 (01:50→21:19)
[2023-04-16 06:47] LABS: MCH 31.5 pg (27.0-33.0); MCHC 34.1 % (32.0-36.0); MCV 92 fL (80-95); MPV 10.7 fL (8.0-11.0); Platelet Count 203 10^3/uL (130-400); RBC 4.45 10^6/uL (4.36-5.78); RDW 12.5 % (11.8-14.1); RDW-SD 42.4 fL; WBC 5.69 10^3/uL (4.4-10.8)
--- NOTE | 2023-04-16 07:00 | DI.CT_ITS ---
Exam(s) CT HEAD WO EXAM: CT HEAD WO CLINICAL HISTORY: Right CVA with hemarrhage, follow up. TECHNIQUE: Imaging Protocol: Axial computed tomography images with coronal and sagittal reformatted images were created and reviewed COMPARISON: CT CT BRAIN NECK CTA from 04/15/[address] HEAD WO from 04/15/2023 FINDINGS: Ventricles and Extra axial spaces: Normal in size and morphology for the patient's age. Hemorrhage: No change in small focus of hemorrhage in the right thalamic region. Cerebral parenchyma: No changes small focus of hemorrhage in the right thalamic region. No new areas of hemorrhage. No evidence of infarct. Midline shift: None. Brainstem/Cerebellum: Normal. Calvarium: Normal. Visualized Paranasal sinuses/Mastoids: Clear. Soft Tissues: Mild soft tissues swelling right frontal scalp. IMPRESSION: Stable small focal hemorrhage in the region of the right thalamus. No new abnormalities. RADIATION DOSE DELIVERED: 812.79mGy.cm Total DLP DATA REPOSITORY: All CT scans at this facility are submitted to the National Radiology Data Registry (NRDR) Dose Index Registry (DIR) with the [employer] (ACR). RADIATION OPTIMIZATION: All CT scans at this facility use at least one of these dose optimization te chniques: automated exposure control; mA and/or kV adjustment per patient size (includes targeted exa ms where dose is matched to clinical indication); or iterative reconstruction.
[2023-04-16 07:10] LABS: ALT 17 U/L (16-63); AST 14 U/L (15-37); Albumin 3.3 g/dL (3.4-5.0); Alkaline Phosphatase 43 U/L (46-116); Anion Gap 10.3 mmol/L (3-11); BUN 16 mg/dL (7-18); Bilirubin, Total 0.3 mg/dL (0.2-1.0); CO2 30.7 mmol/L (21.0-32.0); CREATININE 1.1 mg/dL (0.70-1.30); Calcium 8.8 mg/dL (8.5-10.1); Chloride 103 mmol/L (98-107); Estimated GFR 76.37 (mL/min/1.73m2); Glucose 138 mg/dL (74-106); Potassium 3.4 mmol/L (3.5-5.1); Sodium 144 mmol/L (136-145); Total Protein 6.9 g/dL (6.4-8.2)
[2023-04-16 07:33] LABS: TSH 2.42 uIU/mL (0.36-3.74)
[2023-04-16 07:43] LABS: Lab Add On Test DONE
[2023-04-16 07:51] LABS: Calculated LDL 115 mg/dL (<100); Cholesterol 184 mg/dL (<200); HDL Cholesterol 52 mg/dL (40-60); Triglyceride 89 mg/dL (<150)
--- NOTE | 2023-04-16 08:00 | DI.US_ITS ---
APPROVED REPORT EXAM: Comprehensive 2D, Doppler, and color-flow Echocardiogram Patient Location: In-Patient Room/Bed: ASA172 Executive Coach: Kate Soares RDCS (AE) Indications: Hemorrhagic CVA Echo Enhancing Agent Indication: Rule out Shunt Agent(s) / Amount(s) Used: Agitated Saline 30.0 cc Comments: Contrast study was performed with 3 IV injections of 10ccs of agitated normal saline, at [facility], with cough and post valsalva maneuver. Negative contrast study for shunt flow. Other Information Study Quality: Adequate. Technically limited study due to body habitus, inability to position patient exam done supine bedside. Conclusion Normal left ventricular wall thickness and chamber size. Estimated ejection fraction is 55 to 60%. Wall motion is normal Right ventricle is normal in size. Right ventricular function is grossly normal Both atria are normal in size No intracardiac shunting is identified with injection of agitated saline Trileaflet aortic valve with trace regurgitation Wall motion Left Ventricle The left ventricle is normal size. The left ventricular systolic function is normal. The left ventric ular ejection fraction is within the normal range. There is normal left ventricular wall thickness. T here is normal LV segmental wall motion. There is no ventricular septal defect visualized. LVEF is 58 %. Right Ventricle The right ventricle is normal size. Right ventricular systolic function is grossly normal. Atria The left atrium size is normal. The right atrium size is normal. The interatrial septum is intact wit h no evidence for an atrial septal defect. Aortic Valve The aortic valve is normal in structure. Aortic valve is trileaflet. There is no aortic valvular sten osis. Trace aortic regurgitation. Mitral Valve The mitral valve is normal in structure. No evidence of mitral valve stenosis. Trace mitral regurgita tion. Tricuspid Valve The tricuspid valve is normal in structure. There is no tricuspid valve stenosis. Trace tricuspid reg urgitation. Unable to assess PA pressure. Pulmonic Valve The pulmonary valve is normal in structure. There is no pulmonic valvular stenosis. There is no pulmo yola valvular regurgitation. Great Vessels The aortic root is normal in size. The ascending aorta is normal in size. IVC is normal in size and c ollapses >50% with inspiration. Pericardium There is no pericardial effusion. 2D Dimensions IVSD d PLAX 0.82 cm M: 0.6-1.2 LV Vol A2C d MOD 71.8 mL LVPW d PLAX 0.85 cm M: 0.6 - 1.2 LV Vol A4C d MOD 99.4 mL LVID d PLAX 4.77 cm M: 4.2 - 5.8 LA vol/ BSA A2C s A-L 21.6 mL/m2 LVDs 3.25 cm M: 2.5 - 4.0 LA vol/ BSA A4C s A-L 18.5 mL/m2 Ao Root d 3.17 cm M: 3.1 - 3.7 LA Vol/ BSA Biplane s A-L 20.8 mL/m2 Ao Asc Diam d 3.45 cm M: 2.6 - 3.4 LA Area A4C s MOD 13.31 cm2 LV EF Teichholz 59.4 % LA Area A2C s MOD 15.03 cm2 LVEF (Velazquez's) 55.83 % M: 52 - 72 LV EF A4C MOD 55.0 % LV Volume 66.90 mL M: 62 - 150 LV EF A2C MOD 58.0 % LV Volume Index 36.96 mL/m2 M: 34 - 74 LV EF Biplane MOD 55.8 % LV Vol Biplane MOD 86.2 mL SV 48.10 mL FS 31.55 % SV Index 26.60 mL/m2 M-Mode TAPSE 1.95 cm (M/F) >1.7 LV Diastology MV E' medial 0.055 (>0.07 m/s) E/A Ratio 0.7 LV E/e MED 9.90 (<14) MV E Vmax 0.54 (0.4-1.3 m/s) MV E' lateral 0.103 (>0.1 m/s) MV A Vmax 0.80 (0.4-1.3 m/s) LV E/e LAT 5.30 (<14) MV E/A Ratio 0.67 MV E/E' medial 9.90 MV E/E' lateral 5.31 Aortic Valve LVOT Area 3.66 cm2 AoV Area Vmax 3.13 cm2 LVOT Vmax 1.00 m/s AoV Area/ BSA (Vmax) 1.73 cm2/m2 LVOT Mean Jaren. 0.60 m/s LEONOR Mean Jaren. 2.69 cm2 LVOT Peak Grad 4.0 mmHg LEONOR Mean Jaren. Index 1.49 cm2/m2 LVOT Mean Grad 1.8 mmHg LVOT VTI 0.194 m LVOT Diam s 2.15 cm AoV Vmax 1.17 m/s Velocity Ratio 0.85 AoV Mean Jaren. 0.82 m/s AoV Peak Grad 5.5 mmHg LVOT SV 70.95 mL AoV Mean Grad 3.0 mmHg AoV VTI 0.198 m AoV Area VTI 3.58 cm2 AoV Area/ BSA (VTI) 1.98 cm/m2 Mitral Valve MV DT 290 (160-240 msec) MV PHT 84 msec MV Area PHT 2.62 cm2 MV VTI 0.232 m MV Area VTI 3.06 (4.0-6.0 cm2) Pulmonary Valve PV Vmax 0.92 (0.5-1.5 m/s) RVOT Peak Gr. 1.52 mmHg PV Peak Grad 3.4 mmHg RVOT Mean Gr. 0.80 mmHg PV Mean Grad 1.9 mmHg RVOT VTI 0.129 m PV VTI 0.168 m RVOT Vmax 0.62 m/s
--- NOTE | 2023-04-16 09:01 | W.PULMCC ---
General Date of Service Date of service: 04/16/23 Time of Service: 09:23 Reason for Admission to ICU: Hemorrhagic CVA Assessment and Plan Assessment and plan (1) Hemorrhagic cerebrovascular accident (CVA): Status: Acute (2) HTN (hypertension): Status: Acute (3) Syncope and collapse: Status: Acute (4) Hypokalemia: Status: Acute (5) Hyperglycemia: Status: Acute (6) Elevated LDL cholesterol level: Status: Acute Assessment and plan: This is a 62 yo admitted to the ICU for a right 9mm thalamic hemorrhagic CVA. Thalamic hemorrhages are typically due to uncontrolled hypertension, which is fitting with his BP's seen in the ED. He reports being told he has had low blood pressure, which is somewhat confusing. He does not have recent historical symptoms that are consistent with a pheocromocytoma, so do not think he needs testing. His LDL and glucose are elevated. I have ordered a HbA1C. He has been started on statin therapy. He has been started on amlodipine. We will see if the bleed is stable in size. If it has grown, I would recommend discussion with [facility] [place]. Recommendations Pulmonary: No acute concerns Cardiac: Hypertension - liberated from nicardipine gtt - started on amlodipine - close BP monitoring - recommend SBP 140-160mmHg Hyperlipidemia - has been started on statin therapy Renal: No acute concerns I&O: Intake & Output 04/13/23 04/14/23 04/15/23 04/16/23 23:59 23:59 23:59 23:59 Intake Total 1026.0 / 1026.0 360 / 360 Output Total 700 / 700 250 / 250 Balance 326.0 / 326.0 110 / 110 Weight 67.5 kg 70.7 kg Daily Fluid Goal:: even GI Nutrition: Ok for diet No GI concerns Date of Last Bowel Movement: 04/15/23 Infectious Disease: No acute concerns Hematologic: No acute concerns Neurologic: Right thalamic hemorrhagic CVA - maintain SBP 140-160 - repeat head CT this morning - if hemorrhage has enlarged or development of shift/edema, recommend [facility] neurosurgery consultation - neuro check q2-3 hours now - continue on telemetry - echo ordered with bubble study Endocrine: Hyperglycemia - HbA1C ordered Lines: PIV Prophylaxis: no DVT ppx on PPI - home med Code Status: Resuscitation Status Full Code Subjective Critical and life-threatening events over the past 24 hours: This is a 62 yo admitted to the ICU for a 9mm acute hemorrhage in the right thalamus with no midline shift or edema. He was found to be hypertensive in the ED with blood pressures up to 186/80 and thus was started on a nicardipine infusion, which has since been liberated. He is having a repeat head CT completed this morning. He did have a syncopal event which is likely in relation to the CVA. This morning he complains of headache. He denies increased headaches prior to his syncopal event. He denies abdominal/chest pains. Denies changes in urination. He was suprised when I told him of the hypertension and he states he has been told repeatedly that his blood pressure is low. Exam Narrative Exam Narrative: Gen: NAD, normal respiratory effort, well-nourished HENT: PERRL Chest: No respiratory distress, normal appearance of chest, clear to auscultation bilaterally, no crackles or wheezes, normal inspiratory effort Heart: regular rate and rhythym, no murmurs, rubs or gallops Abdomen: Non-distended, soft, non tender Extremities: No clubbing, edema, cyanosis, rashes Neuro: AAOx3 , non focal Psych: cooperative, appropriate mental affect Most Recent VS/Results Last Vital Signs Temp 36.7 C 04/16/23 05:30 Pulse 64 04/16/23 05:27 Resp 15 04/16/23 05:40 BP 124/73 04/16/23 05:27 Pulse Ox 97 04/16/23 05:40 Laboratory Results - last 24 hr 04/15/23 04/15/23 04/15/23 14:51 14:51 14:51 WBC 5.98 RBC 4.83 Hgb 15.2 Hct 44.2 MCV 92 MCH 31.5 MCHC 34.4 RDW 12.4 Plt Count 214 MPV 10.4 Immature Gran % 0.2 Neutrophils % 72.8 Lymphocytes % 16.2 Monocytes % 9.0 Eosinophils % 1.5 Basophils % 0.3 Nucleated RBC % 0.0 Absolute Neutrophils 4.35 Absolute Lymphocytes 0.97 L Absolute Monocytes 0.54 Absolute Eosinophils 0.09 Absolute Basophils 0.02 PT INR APTT VBG pH VBG pCO2 VBG pO2 VBG HCO3 VBG Total CO2 VBG O2 Saturation VBG Base Excess Sodium 142 Potassium 4.1 Chloride 103 Carbon Dioxide 29.1 Anion Gap 9.9 BUN 18 Creatinine 1.2 Est GFR (CKD-EPI 2020) 68.80 Glucose 152 H Calcium 9.5 Magnesium Total Bilirubin 0.5 AST 15 ALT 18 Alkaline Phosphatase 47 Creatine Kinase 47 Troponin I < 50 Total Protein 7.8 Albumin 3.8 Triglycerides Total Cholesterol LDL Cholesterol, Calc HDL Cholesterol TSH Add-On Test Request 04/15/23 04/15/23 04/15/23 14:51 17:25 18:26 WBC RBC Hgb Hct MCV MCH MCHC RDW Plt Count MPV Immature Gran % Neutrophils % Lymphocytes % Monocytes % Eosinophils % Basophils % Nucleated RBC % Absolute Neutrophils Absolute Lymphocytes Absolute Monocytes Absolute Eosinophils Absolute Basophils PT 9.7 INR 1.0 APTT 22.7 VBG pH Cancelled VBG pCO2 Cancelled VBG pO2 Cancelled VBG HCO3 Cancelled VBG Total CO2 Cancelled VBG O2 Saturation Cancelled VBG Base Excess Cancelled Sodium Potassium Chloride Carbon Dioxide Anion Gap BUN Creatinine Est GFR (CKD-EPI 2020) Glucose Calcium Magnesium Total Bilirubin AST ALT Alkaline Phosphatase Creatine Kinase Troponin I < 50 Total Protein Albumin Triglycerides Total Cholesterol LDL Cholesterol, Calc HDL Cholesterol TSH Add-On Test Request 04/16/23 04/16/23 04/16/23 05:40 05:40 05:40 WBC 5.69 RBC 4.45 Hgb 14.0 Hct 41.0 MCV 92 MCH 31.5 MCHC 34.1 RDW 12.5 Plt Count 203 MPV 10.7 Immature Gran % Neutrophils % Lymphocytes % Monocytes % Eosinophils % Basophils % Nucleated RBC % Absolute Neutrophils Absolute Lymphocytes Absolute Monocytes Absolute Eosinophils Absolute Basophils PT INR APTT VBG pH VBG pCO2 VBG pO2 VBG HCO3 VBG Total CO2 VBG O2 Saturation VBG Base Excess Sodium 144 Potassium 3.4 L Chloride 103 Carbon Dioxide 30.7 Anion Gap 10.3 BUN 16 Creatinine 1.1 Est GFR (CKD-EPI 2020) 76.37 Glucose 138 H Calcium 8.8 Magnesium Total Bilirubin 0.3 AST 14 L ALT 17 Alkaline Phosphatase 43 L Creatine Kinase Troponin I Total Protein 6.9 Albumin 3.3 L Triglycerides 89 Total Cholesterol 184 LDL Cholesterol, Calc 115 H HDL Cholesterol 52 TSH 2.42 Add-On Test Request 04/16/23 04/16/23 05:40 05:40 WBC RBC Hgb Hct MCV MCH MCHC RDW Plt Count MPV Immature Gran % Neutrophils % Lymphocytes % Monocytes % Eosinophils % Basophils % Nucleated RBC % Absolute Neutrophils Absolute Lymphocytes Absolute Monocytes Absolute Eosinophils Absolute Basophils PT INR APTT VBG pH VBG pCO2 VBG pO2 VBG HCO3 VBG Total CO2 VBG O2 Saturation VBG Base Excess Sodium Potassium Chloride Carbon Dioxide Anion Gap BUN Creatinine Est GFR (CKD-EPI 2020) Glucose Calcium Magnesium 2.0 Total Bilirubin AST ALT Alkaline Phosphatase Creatine Kinase Troponin I Total Protein Albumin Triglycerides Total Cholesterol LDL Cholesterol, Calc HDL Cholesterol TSH Add-On Test Request DONE Review of Systems All systems reviewed & are unremarkable except as noted in HPI and below Time spent with patient Time spent in Critical Care: 60 Time spent in Critical care included: Chart review, Documenting critically ill care, Time at immediate bedside and Discussing critically ill care with other medical staff
--- NOTE | 2023-04-16 10:03 | PDOC.CMIN ---
Date of service: 04/16/23 Time of Service: 10:03 Care Management Initial Assmt Initial Assessment REASON FOR HOSPITALIZATION:: Hemorrhagic CVA, HTN CURRENT FUNCTIONAL STATUS:: In room with guard support. Has patient been provided with info about the portal/API?: No Did the patient sign up for the portal?: No CODE STATUS:: Full Code INSURANCE COVERAGE / FINANCIAL ISSUES:: Medicaid pending CURRENT HOME/COMMUNITY SERVICES/EQUIPMENT:: [facility] PRIMARY CARE PHYSICIAN:: Antonia Falcon POTENTIAL DISCHARGE NEEDS:: Coordination of discharge information to [facility]. PATIENT/FAMILY EDUCATION NEEDS:: Review discharge instructions, discuss Ask Me Three. ANTICIPATED BARRIERS TO DISCHARGE:: None identified. TRANSPORTATION:: Via the facility's van. PLAN:: Will return to [facility] when medically ready via the facility's van. CM continues to follow. PFSH All Active Problems (Updated 04/18/23 @ 18:16 by Akanksha Lay MD) Orthostatic hypotension (Acute) Discharge planning issues (Acute) DVT prophylaxis (Acute) Elevated LDL cholesterol level (Acute) Hyperglycemia (Acute) Hypokalemia (Acute) Depression with anxiety (Chronic) BPH with obstruction/lower urinary tract symptoms (Chronic) Syncope and collapse (Acute) HTN (hypertension) (Acute) Hemorrhagic cerebrovascular accident (CVA) (Acute) Medical History Congenital hand deformity GERD (gastroesophageal reflux disease) Surgical History Appendectomy EGD - MAC (10/29/17) Reconstruction right hand Social History Smoking/Tobacco Use Status: Never Smoking risk assessment performed?: Yes Drug use: Never
[2023-04-16 10:34] LABS: Hemoglobin A1C 6.1 % (<5.7)
--- NOTE | 2023-04-16 10:40 | IN_ITS ---
PT Notes Visit Reasons: Hemorrhagic CVA, HTN Physical Therapy Inpatient Initial Evaluation Date: 04/16/2023 Referring Doctor: Miguel Deshpande MD PT Orders: PT CONSULT: Limited ability Precautions: Fall. Standard. Activity as tolerated. Patient Profile/Admitting Diagnosis: Louis is a 62-year-old male who presented to the ED on 04/15/2023 due to a syncopal episode and report of left upper extremity numbness and paresthesias. He is admitted to the ICU for management of acute hemorrhagic cerebrovascular acc ident, syncope and collapse, hypertension, depression and anxiety. PMHX: All Active Problems?(Updated 04/16/23 @ 01:28 by Miguel Deshpande) Depression with anxiety (Chronic) BPH with obstruction/lower urinary tract symptoms (Chronic) Syncope and collapse (Acute) HTN (hypertension) (Acute) Hemorrhagic cerebrovascular accident (CVA) (Acute) Medical History? Congenital hand deformity GERD (gastroesophageal reflux disease) Surgical History? Appendectomy EGD - MAC (10/29/17) Reconstruction right hand Social History/Home Situation: Incarcerated. Independent with all aspects of ADLs prior to admission. No previous falls. Equipment Owned/DME: None Subjective: States that he fell recently. Denies headache, chest pain, and lightheadedness throughout. Teary-eyed about not being able to maintain balance and about having difficulty sitting up. Reports continued numbness in the left hand and now the left foot as well especially with walking. Per Nurse Schneider, patient has been moving well since he came in. Per guards, patient will not have shackles while inside his cell and will be able to make use of both hands to support him in getting up. His meals may need to be given to him if he is unable to walk from his cell to the dining room. Objective: General Observation: Supine in bed. 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 Shackles on R leg and L forearm. Officers Fredrick and Pranav present in room throughout evaluation. Mental Status: Alert and oriented as to person, place, time, and purpose. Able to pay attention, focus, and respond appropriately. Pain: Denies Vital Signs: WNL as closely monitored via tele ROM: Right Upper Extremity: Shoulder Flexion allows up to 90 degrees. Shoulder abduction allows up to 90 degrees. Elbow flexion WFL. Wrist flexion WFL. Functional opening and closing of hand impaired. Left Upper Extremity: Shoulder Flexion allows up to 90 degrees. Shoulder abduction allows up to 90 degrees. Elbow flexion WFL. Wrist flexion WFL. Functional opening and closing of hand WFL. Right Lower Extremity: Hip flexion WFL. Hip abduction WFL. Knee flexion WFL. Ankle dorsiflexion WFL. Ankle plantarflexion WFL. Left Lower Extremity: Hip flexion WFL. Hip abduction WFL. Knee flexion WFL. Ankle dorsiflexion WFL. Ankle plantarflexion WFL. Strength: Right Upper Extremity: Shoulder flexors 3-/5. Shoulder abductors 3-/5. Elbow flexors 4-/5. Elbow extensors 4-/5. Lining Marker limited due to congenital hand deformity. Left Upper Extremity: Shoulder flexors 3-/5. Shoulder abductors 3-/5. Elbow flexors 4/5. Elbow extensors 4/5. Lining Marker strong. Right Lower Extremity: Hip flexors 4/5. Hip abductors 4/5. Knee flexors 5/5. Knee extensors 5/5. Ankle dorsiflexors 4/5. Ankle plantarflexors 4/5. Left Lower Extremity: Hip flexors 4/5. Hip abductors 4/5. Knee flexors 5/5. Knee extensors 5/5. Ankle dorsiflexors 4/5. Ankle plantarflexors 4/5. Bed Mobility/Transfers: Rolling independent Supine to sit independent Sit to supine independent Sit to stand independent Stand to sit independent Gait: Instructed patient with level surface ambulation of about 200 feet requiring stand by assist of PT and 2 officers. Eli diminished due to shackles on B feet, arm swing absent due to shackles in B wrists. Base of support limited and step length and height decreased due to physical restriction from shackles but no LOB. Balance: Static Sitting: Normal Dynamic Sitting: Normal Static Standing: Fair Dynamic Standing: Fair Special Tests: Mobility Limitations Standardized Measure [facility] 6 clicks Basic Mobility Inpatient Short Form: Raw Score: 23 CMS Score: 11% deficit 4-Stage Balance Test: Able to maintain feet together for 10 seconds. Unable to do semi-tandem, full tandem and one legged stance for the same duration. Informed Consent/Education: Patient was instructed in purpose of PT consult and plan of care. Agreeable to proceed with established PT POC to achieve personal goals. Assessment: Initially had a hard time standing up but with correct strategy later on, patient was able to stand up from EOB with use of B UE even with the shackles on. Will do better inside his cell with shackles off. Paresthesia distracting patient from walking as he should but no LOB during walking assessment. Presence of security device/shackles limited ability of patient to walk. Requires balance retraining at discharge destination, will benefit from HH PT to maximize mobility level and facilitate return to independent PLOF. Patient presents with clinical signs and symptoms consistent with current/admitting diagnoses that have resulted to mobility limitations, gait instability, generalized weakness, and overall ADL decline as demonstrated by the following impairment level findings: 1. Impaired standing balance 2. Impaired activity tolerance 3. Limitation of joint range of motion in B shoulders (pre-existing) 4. Paresthesias to L hand and L foot Impairments are contributing to the following functional limitations: 1. Difficulty with ambulation 2. Increased completion time for mobility ADL performance 3. Increased risk for falls Patient is assessed as a 56484 moderate complexity based on the following: History: 62-year-old male with past medical history as indicated above Examination: Demonstrable impairment in strength, balance, and mobility level with underlying impairments and functional limitations as exhibited above as well as deficit score of 11% utilizing the [facility] Mobility Inpatient Short Form Presentation: Evolving Decision Makin moderate complexity Goals: Goals X1 week 1. Supine-Sit independent 2. Sit-Supine independent 3. Sit-Stand independent 4. Stand-Sit independent with no AD 5. Bed-Chair independent with no AD 6. Chair-Bed independent with no AD 7. Independent gait on level surface with use of no AD for at least 300 feet without report of pain nor dyspnea 8. Independent with home exercise program 9. Good static and dynamic standing balance/tolerance Plan of Care/Treatment Plan: 1-2x/day, 7 days/week x 1 week. Plan of care has been reviewed with the LONGITUDINAL FLOAT OPERATOR providing the service under Physical Therapy direction. Initiate Physical Therapy intervention for pain management as needed, strengthening, bed mobility, transfers, gait, stairs, balance training, and use of assistive device. DISCHARGE RECOMMENDATIONS: [] Home with no services [] [X] Home with services. Will benefit from balance retraining and B LE strengthening to reduce fall risk at discharge destination. [] Home with outpatient PT [] [] SNF for continued rehabilitation [] [] [facility] [] [] SNF versus LTC based on ability to participate and progress [] TREATMENT CODE/TIME: 16325 x 26 minutes beginning at 9:55 AM. Thank you for the opportunity to participate in the care of this patient. Mariah Drake PT, DPT, CLT [facility] [place], [place]
[2023-04-16] MEDS: Venlafaxine 150 MG CAPCR PO (11:02)
[2023-04-16] MEDS: amLODIPine 5 MG TAB PO (11:02)
[2023-04-16] MEDS: Pantoprazole 40 MG TABCR PO (11:02)
[2023-04-16] MEDS: Tamsulosin 0.4 MG CAPCR PO (11:02)
[2023-04-16] MEDS: POTASSIUM CHLORIDE 20 MEQ/100 ML BAG 50 MEQ IVPB (11:18)
--- NOTE | 2023-04-16 12:40 | OTIE_ITS ---
Occupational Therapy Notes Inpatient Occupational Therapy Evaluation Date: 04/16/23 Referring Doctor:Miguel Deshpande MD OT Orders: Non Urgent Precautions: Fall, standard, full PATIENT PROFILE/ADMITTING DIAGNOSIS: Pt is a 62 year old male who acute CVA hemorrhagia cerebrovascular accident, elevated LDL, hyperglycemia, hypokalemia, depression with anxiety, BPH with obstruction/lower UTI, syncope/collapse, HTN. Past Medical History: All Active Problems?(Updated 04/16/23 @ 01:28 by Miguel Deshpande) Depression with anxiety (Chronic) BPH with obstruction/lower urinary tract symptoms (Chronic) Syncope and collapse (Acute) HTN (hypertension) (Acute) Hemorrhagic cerebrovascular accident (CVA) (Acute) Medical History? Congenital hand deformity GERD (gastroesophageal reflux disease) Surgical History? Appendectomy EGD - MAC (10/29/17) Reconstruction right hand Social History/Home Situation: Pt is currently incarcerated. He is (I) with his ADLs. 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 He states that he does not need any (A) with any ADLs/IADL routines. Equipment owned/DME: None SUBJECTIVE: Pt was sitting in his bed with 2 officers at his bedside. He notes that he has no numbness in his (L) UE and that he feels that he is at his baseline in terms of his (L) UE. OBJECTIVE: General Observation: (R) UE congenital deformity, BP cuff, telemetry Mental Status: A&Ox3 Pain: no c/o pain ROM: RUE limited motion due to deformity which is pts baseline level of function. L UE WFL FUNCTIONAL MOBILITY/ADLS: EATING Pt was sitting in bed in upright position, with (L) UE handcuffed to the bed he was (I) with his eating routines with no restrictions. Dressing- (I) with don and doffing (B) socks BALANCE: Static sitting Normal Dynamic Sitting Normal SPECIAL TESTS: Daily Activity Limitations Standardized Measure [facility] AM -PAC ?6 clicks? Daily Activity Inpatient Short Form: Raw score: 23 Standardized score: 51.12 CMS score: 15.86% INFORMED CONSENT/EDUCATION: Pt instructed in purpose of OT Consult and plan of care. ASSESSMENT: Patient is a 62-year-old male referred to occupational therapy services with diagnosis of acute CVA hemorrhagia cerebrovascular accident, elevated LDL, hyperglycemia, hypokalemia, depression with anxiety, BPH with obstruction/lower UTI, syncope/collapse, HTN. Patient presents with clinical signs and symptoms consistent with dx. OT went in to see pt for evaluation. Pt notes that he has no numbness in his (L) UE. He states that at this moment this has improved to his baseline level of function. Based on this OT does not feel that pt needs further skilled OT services at this time. He is (I) with his demonstrated ADLs, Patient is assessed as a Low 47678 complexity based on the following: History: see above Examination: see functional limitations as noted above Presentation: evolving Decision Making: AMPAC score 23 GOALS N/A seen for OT consult only. PLAN OF CARE/TREATMENT PLAN: Seen for OT consult only. Pt reports that his numbness in his (L) UE is better and that he is at his baseline level of function in regards to his UE. Based on this, OT will plan to discharge pt from skilled OT services at this time DISCHARGE RECOMMENDATIONS Return to prior living situation when medically cleared per MD. TREATMENT TIME/MINUTES/CODES 66307, [address] [place], [place]
[2023-04-16] MEDS: POTASSIUM CHLORIDE 20 MEQ/100 ML BAG 25 MEQ IVPB (14:31)
--- NOTE | 2023-04-16 15:00 | NUR.NOTE ---
Echocardiogram completed.Nursing Note:
--- NOTE | 2023-04-16 17:33 | INDS_ITS ---
Date of service: 04/16/23 Time of Service: 16:41 PT Notes Visit Reasons: Hemorrhagic CVA, HTN Physical Therapy Inpatient Discharge Summary Date: 04/16/2023 Dates of Service: 04/16/2023 only Referring Doctor: Miguel Deshpande,? PT Orders: PT CONSULT: Limited ability Precautions: Fall. Standard. Activity as tolerated. Patient Profile/Admitting Diagnosis: Louis is a 62-year-old male who presented to the ED on 04/15/2023 due to a syncopal episode and report of left upper extremity numbness and paresthesias.? He is admitted to the ICU for management of acute hemorrhagic cerebrovascular accident, syncope and collapse, hypertension, depression and anxiety. PMHX: All Active Problems?(Updated 04/16/23 @ 01:28 by Miguel Deshpande) Depression with anxiety (Chronic) BPH with obstruction/lower urinary tract symptoms (Chronic) Syncope and collapse (Acute) HTN (hypertension) (Acute) Hemorrhagic cerebrovascular accident (CVA) (Acute) Medical History? Congenital hand deformity GERD (gastroesophageal reflux disease) Surgical History? Appendectomy EGD - MAC (10/29/17) Reconstruction right hand Social History/Home Situation: Incarcerated.? Independent with all aspects of ADLs prior to admission.? Equipment Owned/DME: None Subjective: No report of numbness/paresthesia in L hand. L foot numbness aggravated with weight bearing. Objective: General Observation: Supine in bed.? Congenital deformity in R UE noted.? Shackles on R leg and L forearm. Officers Fredrick and Pranav present in room throughout evaluation. Mental Status: Alert and oriented as to person, place, time, and purpose. Able to pay attention, focus, and respond appropriately. Pain: Denies Vital Signs: WNL as closely monitored via tele ROM: Right Upper Extremity: ? Shoulder Flexion allows up to 90 degrees. Shoulder abduction allows up to 90 degrees.? Elbow flexion WFL. Wrist flexion WFL. Functional opening and closing of hand impaired. Left Upper Extremity:? Shoulder Flexion allows up to 90 degrees. Shoulder abduction allows up to 90 degrees.? Elbow flexion WFL. Wrist flexion WFL. Functional opening and closing of hand WFL. Right Lower Extremity: Hip flexion WFL. Hip abduction WFL. Knee flexion WFL. Ankle dorsiflexion WFL. Ankle plantarflexion WFL. Left Lower Extremity: Hip flexion WFL. Hip abduction WFL. Knee flexion WFL. Ankle dorsiflexion WFL. Ankle plantarflexion WFL. Strength: Right Upper Extremity: Shoulder flexors 3-/5. Shoulder abductors 3-/5. Elbow flexors 4-/5. Elbow extensors 4-/5. [employer] Administrator limited due to congenital hand deformity. Left Upper Extremity: Shoulder flexors 3-/5. Shoulder abductors 3-/5. Elbow flexors 4/5. Elbow extensors 4/5. [employer] Administrator strong. Right Lower Extremity: Hip flexors 4/5. Hip abductors 4/5. Knee flexors 5/5. Knee extensors 5/5. Ankle dorsiflexors 4/5. Ankle plantarflexors 4/5. Left Lower Extremity: Hip flexors 4/5. Hip abductors 4/5. Knee flexors 5/5. Knee extensors 5/5. Ankle dorsiflexors 4/5. Ankle plantarflexors 4/5. Bed Mobility/Transfers: Rolling independent Supine to sit independent Sit to supine independent Sit to stand independent Stand to sit independent Gait: Instructed patient with level surface ambulation of about 200 feet requiring stand by assist of PT and 2 officers. Eli diminished due to shackles on B feet,? arm swing absent due to shackles in B wrists.? Base of support limited and step length and height decreased due to physical restriction from shackles but no LOB. Balance: Static Sitting: Normal Dynamic Sitting: Normal Static Standing: Fair Dynamic Standing: Fair Special Tests: Mobility Limitations Standardized Measure [facility] 6 clicks Basic Mobility Inpatient Short Form: Raw Score: 23? CMS Score: 11% deficit? ? THERA EX: Instructed patient with safe and correct performance of HEP as follows: (written copy provided) - Seated January? - 1 x daily - 7 x weekly - 1 sets - 10 reps - 5 hold - Seated Long Arc Quad? - 1 x daily - 7 x weekly - 1 sets - 10 reps - 5 hold - Sit to Stand with Armchair? - 1 x daily - 7 x weekly - 1 sets - 5 reps - 5 hol d - Seated Ankle Pumps on Table? - 1 x daily - 7 x weekly - 1 sets - 10 reps - 5 hold - Seated Hip Abduction? - 1 x daily - 7 x weekly - 1 sets - 10 reps - 5 hold ? 4-Stage Balance Test:? Able to maintain feet together, semi-tandem, and full tandem for 10 seconds.? Unable with one legged stance for the same duration. Assessment: Now modified independent with sit<>stand with correct strategy. Only needing supervision for IV pole management and for security reasons for level surface ambulation. Still reports some numbness in L foot. L hand paresthesia seems to have resolved per patient. Goals: Goals X1 week 1. Supine-Sit independent MET 2. Sit-Supine independent MET 3. Sit-Stand independent MET 4. Stand-Sit independent with no AD MET 5. Bed-Chair independent with no AD MET 6. Chair-Bed independent with no AD MET 7. Independent gait on level surface with use of no AD for at least 300 feet without report of pain nor dyspnea MET 8. Independent with home exercise program MET 9. Good static and dynamic standing balance/tolerance MET DISCHARGE RECOMMENDATIONS: [X] ? Home with no services [] [] ? Home with services [] [] ? Home with outpatient PT [] [] ? SNF for continued rehabilitation [] [] ? Residential Care [] [] ? SNF versus LTC based on ability to participate and progress [] TREATMENT CODE/TIME: 25443 x 29 minutes beginning at 16:41 PM. Thank you for the opportunity to participate in the care of this patient. Mariah Drake PT, DPT, CLT [facility] [place], [place]
--- NOTE | 2023-04-16 17:46 | STREC_ITS ---
Date of service: 04/16/23 Time of Service: 17:47 Speech Therapy Recommendations Report ST Recommendations: Non-Treatment Note: Consult received (swallowing) and chart reviewed for this 62 y/o M with R thalamic CVA. Spoke with ICU nurse who reports that patient efficiently and easily tolerated complex solid and fibrous textures as well as thin liquids across meals this date and without any coughing, throat clear, voice changes per her observation. No postprandial coughing, runny nose, eyes, respiratory changes, etc. Appeared with no difficulty chewing or swallowing. Per nursing, patient reports baseline swallow function at this time and feels [facility] RN consult no longer appropriate which is reasonable given details of nurse report. Recommendations: Baseline diet per patient preference. If further concerns related to speech/swallow are identified, hospitalist, neurology, or PCP should please place outpatient referral orders. Coding
[2023-04-16] MEDS: Melatonin 3 MG TAB 6 MG PO (21:18)
--- NOTE | 2023-04-16 21:41 | W.PM.PROGNOT ---
Date of Service Date of service: 04/16/23 Time of Service: 09:30 Assessment and Plan Assessment and plan (1) Hemorrhagic cerebrovascular accident (CVA): Start date: 04/15/23 Status: Acute Assessment and plan: Stable per repeat CT. Discussed with [facility] neurology. Recommed BP control w/ target SBP<140. Started on norvasc. Since he was transitioned off of cardene gtt this morning, recommended monitoring in the ICU throughout today to ensure that cardene gtt was not needed. No additional interventions recommended. The etiology of the bleed is likely hypertensive. Syncope and collapse could have been symptoms of bleed. (2) Syncope and collapse: Start date: 04/15/23 Status: Acute Assessment and plan: As above (3) HTN (hypertension): Start date: 04/15/23 Status: Acute Assessment and plan: As above. Started on norvasc. Will monitor to ensure the therapy is sufficient and also not excessive as he usually states he has low BP. (4) Congenital hand deformity: Assessment and plan: PT/OT consulted. (5) GERD (gastroesophageal reflux disease): Assessment and plan: Continue PPI. 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 (7) Depression with anxiety: Status: Chronic Assessment and plan: Continue effexor. (8) DVT prophylaxis: Status: Acute Assessment and plan: SCDs. Chemical DVT ppx is contraindicated in setting of acute cerebral hemorrhage. (9) Discharge planning issues: Status: Acute Assessment and plan: Full code Continues to require hospitalization Would keep in ICU overnight with plan to closely monitor BPs with Target SBP<140. Discussed with Dr Amaro. Total Critical Care Time 45 minutes. Subjective Subjective Interval history since last seen: Patient reports feeling a little dizzy when he closes his eyes. Otherwise, he has a posterior headache. Denies numbness/tingling/weakness anywhere. Denies CP/SOB. Endorses a chronic difficulty swallowing. Exam Narrative Exam Narrative: General: Pleasant middle-aged male who is A&Ox3, NAD Neuro: A&Ox3, CN II-XII intact, sensory intact, 5/5 strength throughout with chronically diminished dexterity RUE, [id number] intact. HEENT: EOMI, MMM Heart: RRR, no m/r/g Lungs: CTAB Abdomen: soft, nontender, nondistended Extremities: no edema BLEs, has shackles to RLE and LUE. Objective Last Vital Signs Temp 37.2 C 04/16/23 19:10 Pulse 67 04/16/23 21:23 Resp 23 04/16/23 21:23 BP 141/84 H 04/16/23 21:23 Pulse Ox 98 04/16/23 21:23 Laboratory Results - last 24 hr 04/16/23 04/16/23 04/16/23 05:40 05:40 05:40 WBC 5.69 RBC 4.45 Hgb 14.0 Hct 41.0 MCV 92 MCH 31.5 MCHC 34.1 RDW 12.5 Plt Count 203 MPV 10.7 Sodium 144 Potassium 3.4 L Chloride 103 Carbon Dioxide 30.7 Anion Gap 10.3 BUN 16 Creatinine 1.1 Est GFR (CKD-EPI 2020) 76.37 Glucose 138 H Hemoglobin A1c Calcium 8.8 Magnesium Total Bilirubin 0.3 AST 14 L ALT 17 Alkaline Phosphatase 43 L Total Protein 6.9 Albumin 3.3 L Triglycerides 89 Total Cholesterol 184 LDL Cholesterol, Calc 115 H HDL Cholesterol 52 TSH 2.42 Add-On Test Request 04/16/23 04/16/23 04/16/23 05:40 05:40 05:40 WBC RBC Hgb Hct MCV MCH MCHC RDW Plt Count MPV Sodium Potassium Chloride Carbon Dioxide Anion Gap BUN Creatinine Est GFR (CKD-EPI 2020) Glucose Hemoglobin A1c 6.1 H Calcium Magnesium 2.0 Total Bilirubin AST ALT Alkaline Phosphatase Total Protein Albumin Triglycerides Total Cholesterol LDL Cholesterol, Calc HDL Cholesterol TSH Add-On Test Request DONE Objective Narrative Objective Narrative: CT head: Stable small focal hemorrhage in the region of the right thalamus. No new abnormalities. Echo: Normal left ventricular wall thickness and chamber size.? Estimated ejection fraction is 55 to 60%.? Wall motion is normal Right ventricle is normal in size.? Right ventricular function is grossly normal Both atria are normal in size No intracardiac shunting is identified with injection of agitated saline Trileaflet aortic valve with trace regurgitation Time Spent with Patient Time Spent with Patient: 35-49 minutes Time was spent: preparing to see the patient(eg.review tests), obtaining and/or reviewing separately otained hiistory, ordering medications,tests, procedures, referring, communicating with other health acute care physician, indepentently interpreting results, counseling the patient and care coordination
[2023-04-17] VITALS (130 sets, daily range): BP systolic 83–148; BP diastolic 55–92; PULSE 61–117; RESP 8–33; TEMP 37.2; O2SAT 17–100
--- NOTE | 2023-04-17 | DI.RAD_ITS ---
Exam(s) XR PORTABLE CHEST AP EXAM: XR PORTABLE CHEST AP CLINICAL HISTORY: cough TECHNIQUE: 2D digital imaging was performed of the chest. One image was obtained. An AP view was ob tained. COMPARISON: CR XR CHEST 2V PA LATERAL from 04/15/2023 FINDINGS: MEDIASTINUM: Normal. HEART: Normal. PULMONARY VASCULATURE: Normal. LUNGS: Clear. PLEURAL SPACE: No pleural effusion or pneumothorax. BONE:Within normal limits for the patient's age. There is an apparent deformity of the right clavicle which may be positional and/or chronic. OTHER FINDINGS:Normal. IMPRESSION: No acute pulmonary findings. DATA REPOSITORY: RADIATION DOSE DELIVERED:
[2023-04-17 06:35] LABS: Anion Gap 8.5 mmol/L (3-11); BUN 12 mg/dL (7-18); CO2 28.5 mmol/L (21.0-32.0); CREATININE 0.8 mg/dL (0.70-1.30); Calcium 8.9 mg/dL (8.5-10.1); Chloride 103 mmol/L (98-107); Estimated GFR 100.69 (mL/min/1.73m2); Glucose 113 mg/dL (74-106); Magnesium 1.8 mg/dL (1.8-2.4); Potassium 4.6 mmol/L (3.5-5.1); Sodium 140 mmol/L (136-145)
[2023-04-17 08:04] LABS: Bilirubin Negative (Negative); Blood Negative (Negative); Clarity Clear (Clear); Glucose Negative (Negative); Ketones 15 mg/dL (Negative); Leukocyte Esterase Negative (Negative); Nitrite Negative (Negative); Urobilinogen 0.2 mg/dL (Up to 0.2)
[2023-04-17 08:17] LABS: *AMPHETAMINES SCREEN URINE Negative (Negative); *BARBITURATES SCREEN URINE Negative (Negative); *BENZODIAZEPINES SCREEN URINE Negative (Negative); Cannabinoids THC Negative (Negative); Cocaine Screen,Urine Negative (Negative); METHADONE URINE SCREEN Negative (Negative); OPIATES URINE SCREEN Negative (Negative); Tricyclic Antidepressants Negative (Negative)
--- NOTE | 2023-04-17 09:43 | PGE_ITS ---
Date of Service Date of service: 04/17/23 Time of Service: 09:43 Assessment and Plan Assessment and plan (1) Hemorrhagic cerebrovascular accident (CVA): Start date: 04/15/23 Status: Acute Assessment and plan: Stable per repeat CT. Per [facility] [place] [place] neuro, etiology is hypertensive and target SBP<140. Continue norvasc. Ok to transfer out of the ICU as has been off of cardene x 24 hrs. No additional interventions recommended. Syncope and collapse could have been symptoms of bleed. (2) Syncope and collapse: Start date: 04/15/23 Status: Acute Assessment and plan: As above (3) HTN (hypertension): Start date: 04/15/23 Status: Acute Assessment and plan: As above. Continue on norvasc. Ok to transfer out of the ICU. (4) Congenital hand deformity: Assessment and plan: Cleared by PT. Will need to follow up with OT. (5) GERD (gastroesophageal reflux disease): Assessment and plan: Double PPI. Suspect might be related to dysphagia. Would ideally have a speech therapy/swallow eval. Not available unitl Wednesday, so if still at the hospital at that point, would benefit from that on inpatient basis. (6) BPH with obstruction/lower urinary tract symptoms: Status: Chronic Assessment and plan: Continue flomax. (7) Depression with anxiety: Status: Chronic Assessment and plan: Continue effexor. (8) DVT prophylaxis: Status: Acute Assessment and plan: SCDs. Chemical DVT ppx is contraindicated in setting of acute cerebral hemorrhage. (9) Discharge planning issues: Status: Acute Assessment and plan: Full code Continues to require hospitalization Transfer out of the ICU. Subjective Subjective Interval history since last seen: My cold is getting worse. Reports sore throat and a nonproductive cough since Wednesday. No fevers/chills. Vaccinated against COVID-19. Guards at the bedside are not aware of any COVID-19 positive contacts. Continues to endorse dizziness when he closes his eyes. Numbness in LUE and LLE comes and goes. Denies CP, SOB, nausea, diarrhea. States swallowing problems have been ongoing and he was previously told they might be due to GERD. Exam Narrative Exam Narrative: General: A&Ox3, NAD HEENT: EOMI, MMM, able to move all 4 extremities Heart: RRR, no m/r/g Lungs: CTAB Abdomen: soft, nontender, nondistended Extremities: RUE with a chronic deformity; otherwise, 5/5 strength throughout. Objective Last Vital Signs Temp 37.2 C 04/16/23 19:10 Pulse 71 04/17/23 06:24 Resp 14 04/17/23 06:24 BP 135/86 04/17/23 06:24 Pulse Ox 100 04/17/23 06:24 Laboratory Results - last 24 hr 04/16/23 04/17/23 04/17/23 05:40 05:30 08:00 Sodium 140 Potassium 4.6 D Chloride 103 Carbon Dioxide 28.5 Anion Gap 8.5 BUN 12 Creatinine 0.8 Est GFR (CKD-EPI 2020) 100.69 Glucose 113 H Hemoglobin A1c 6.1 H Calcium 8.9 Magnesium 1.8 Urine Color Yellow Urine Clarity Clear Urine pH 5.0 Ur Specific [place] 1.020 Urine Protein Negative Urine Ketones 15 H Urine Blood Negative Urine Nitrite Negative Urine Bilirubin Negative Urine Urobilinogen 0.2 Ur Leukocyte Esterase Negative Urine Glucose Negative Urine Opiates Screen Urine Methadone Screen Ur Barbiturates Screen Ur Tricyclics Screen Ur Amphetamines Screen U Benzodiazepines Scrn Urine Cocaine Screen Ur THC Screen 04/17/23 08:00 Sodium Potassium Chloride Carbon Dioxide Anion Gap BUN Creatinine Est GFR (CKD-EPI 2020) Glucose Hemoglobin A1c Calcium Magnesium Urine Color Urine Clarity Urine pH Ur Specific [place] Urine Protein Urine Ketones Urine Blood Urine Nitrite Urine Bilirubin Urine Urobilinogen Ur Leukocyte Esterase Urine Glucose Urine Opiates Screen Negative Urine Methadone Screen Negative Ur Barbiturates Screen Negative Ur Tricyclics Screen Negative Ur Amphetamines Screen Negative U Benzodiazepines Scrn Negative Urine Cocaine Screen Negative Ur THC Screen Negative Objective Narrative Objective Narrative: CXR: No acute findings to explain reported symptoms. Time Spent with Patient Time Spent with Patient: 25-34 minutes Time was spent: preparing to see the patient(eg.review tests), obtaining and/or reviewing separately otained hiistory, ordering medications,tests, procedures, referring, communicating with other health child care cook, indepentently interpreting results, counseling the patient and care coordination
--- NOTE | 2023-04-17 09:52 | NUR.NOTE ---
Nurse insists assistant laboratory director try blood draw again. quality control engineering technician tried to draw blood during the last shift but was unsuccessful. quality control engineering technician arrives per RN's insistence and is successful in obtaining blood for this morning's labs.Nursing Note:
--- NOTE | 2023-04-17 09:54 | NUR.NOTE ---
Chest x-ray is taken.Nursing Note:
[2023-04-17 09:57] LABS: Abs Immature Grans 0.01 10^3/uL (0.0-0.06); Absolute Basophil Count 0.03 10^3/uL (0.0-0.2); Absolute Eosinophil Count 0.13 10^3/uL (0.0-0.7); Absolute Lymphocyte Count 0.96 10^3/uL (1.2-3.4); Absolute Monocyte Count 0.47 10^3/uL (0.1-0.8); Absolute Neutrophil Count 6.01 10^3/uL (1.2-6.7); Basophils % 0.4; Eosinophils % 1.7; HCT 45.5 % (40.0-50.0); HGB 15.7 g/dL (13.5-17.5); Immature Grans % 0.1; Lymphocytes % 12.6; MCH 31.3 pg (27.0-33.0); MCHC 34.5 % (32.0-36.0); MCV 91 fL (80-95); MPV 10.2 fL (8.0-11.0); Monocytes % 6.2; Platelet Count 219 10^3/uL (130-400); RBC 5.01 10^6/uL (4.36-5.78); RDW 12.2 % (11.8-14.1); RDW-SD 40.4 fL; WBC 7.61 10^3/uL (4.4-10.8)
--- NOTE | 2023-04-17 10:08 | DI.VRAD_ITS ---
PROCEDURE INFORMATION: Exam: XR Chest Exam date and time: 04/17/2023 9:52 AM Age: 62 years old Clinical indication: Cough TECHNIQUE: Imaging protocol: Radiologic exam of the chest. Views: 1 view. COMPARISON: CR XR CHEST 2V PA LATERAL 04/15/2023 3:15 PM FINDINGS: Lungs: No focal consolidation seen. Pleural spaces: No large pleural effusion seen. Heart/Mediastinum: No cardiomegaly. Bones/joints: Right clavicular deformity appears nonacute. IMPRESSION: No acute findings to explain reported symptoms. Dictated and Authenticated by: Malinda Jung MD. Ordering:RAFIA Vale MD
[2023-04-17] MEDS: amLODIPine 5 MG TAB PO ×2 (10:18→22:32)
[2023-04-17] MEDS: Venlafaxine 150 MG CAPCR PO (10:19)
[2023-04-17] MEDS: Tamsulosin 0.4 MG CAPCR PO (10:19)
[2023-04-17] MEDS: guaiFENesin 600 MG TABCR PO ×2 (10:19→21:19)
--- NOTE | 2023-04-17 10:35 | NUR.NOTE ---
RN delivers Fluvid sample to lab.Nursing Note:
[2023-04-17] MEDS: Benzocaine/Menthol LOZG 15/BOX 1 EACH SUC (10:37)
[2023-04-17 11:25] LABS: COVID-19 PCR Negative (Negative); Influenza A PCR Negative (Negative); Influenza B PCR Negative (Negative); RSV PCR Negative (Negative)
[2023-04-17 11:26] LABS: Source Nasopharynx
[2023-04-17] MEDS: Pantoprazole 40 MG TABCR PO ×2 (13:31→21:18)
[2023-04-17] MEDS: Melatonin 3 MG TAB 6 MG PO (21:18)
[2023-04-17] MEDS: Atorvastatin 40 MG TAB 80 MG PO (21:18)
[2023-04-18] VITALS (61 sets, daily range): BP systolic 65–158; BP diastolic 53–87; PULSE 52–108; RESP 10–34; TEMP 35.9–36.8; O2SAT 95–98
[2023-04-18 07:01] LABS: Anion Gap 10.2 mmol/L (3-11); BUN 16 mg/dL (7-18); CO2 26.8 mmol/L (21.0-32.0); CREATININE 0.8 mg/dL (0.70-1.30); Calcium 8.8 mg/dL (8.5-10.1); Chloride 102 mmol/L (98-107); Estimated GFR 100.69 (mL/min/1.73m2); Glucose 131 mg/dL (74-106); Magnesium 1.8 mg/dL (1.8-2.4); Potassium 3.7 mmol/L (3.5-5.1); Sodium 139 mmol/L (136-145)
[2023-04-18] MEDS: Lactated Ringers 1,000 ML 1000 ML IV (09:22)
[2023-04-18] MEDS: Normal Saline Flush 10 ML SYR IVP (09:23)
[2023-04-18] MEDS: Acetaminophen 325 MG TAB PO (09:24)
[2023-04-18] MEDS: Venlafaxine 150 MG CAPCR PO (09:25)
[2023-04-18] MEDS: Tamsulosin 0.4 MG CAPCR PO (09:25)
[2023-04-18] MEDS: Pantoprazole 40 MG TABCR PO ×2 (09:25→20:07)
[2023-04-18] MEDS: guaiFENesin 600 MG TABCR PO ×2 (09:26→20:07)
[2023-04-18] MEDS: amLODIPine 5 MG TAB PO (09:26)
--- NOTE | 2023-04-18 18:07 | W.PM.PROGNOT ---
Date of Service Date of service: 04/18/23 Time of Service: 08:45 Assessment and Plan Assessment and plan (1) Hemorrhagic cerebrovascular accident (CVA): Start date: 04/15/23 Status: Acute Assessment and plan: Stable per repeat CT. Per [facility] neuro, etiology is hypertensive and target SBP<140. Continue norvasc. No additional interventions recommended. Transferred to medical surgical floor. Syncope and collapse could have been symptoms of bleed. (2) Syncope and collapse: Start date: 04/15/23 Status: Acute Assessment and plan: As above Additionally, is orthostatic. We will monitor his orthostatic vital signs with IV hydration and TEDs. (3) HTN (hypertension): Start date: 04/15/23 Status: Acute Assessment and plan: As above. Continue on norvasc. (4) Orthostatic hypotension: Status: Acute Assessment and plan: As above. TEDS. Hydrate IV. Consider d/c flomax if above interventions are not sufficient. (5) Congenital hand deformity: Assessment and plan: Cleared by PT. Will need to follow up with OT. (6) GERD (gastroesophageal reflux disease): Assessment and plan: Continue doube dose of the PPI. Suspect might be related to dysphagia. Await a speech therapy evaluation. (7) BPH with obstruction/lower urinary tract symptoms: Status: Chronic Assessment and plan: Continue flomax. This could be the culprit of orthostasis. If orthostatic hypotension persists with IV hydration, would d/c it. (8) Depression with anxiety: Status: Chronic Assessment and plan: Continue effexor. (9) DVT prophylaxis: Status: Acute Assessment and plan: SCDs. Chemical DVT ppx is contraindicated in setting of acute cerebral hemorrhage. (10) Discharge planning issues: Status: Acute Assessment and plan: Full code Anticipate discharge to the correctional facility tomorrow. Subjective Subjective Interval history since last seen: Mr Lauren states that he feels about the same. He still gets dizzy when he closes his eyes, reports L hand and L foot numbness that come and go. Denies CP, SOB, nausea. States he has a headache. Denies visual changes. Orthostatic today. When seated, his SBP was in the 60s. He was symptomatic. Exam Narrative Exam Narrative: General: A&Ox3, NAD HEENT: EOMI, MMM, able to move all 4 extremities Heart: RRR, no m/r/g Lungs: CTAB Abdomen: soft, nontender, nondistended Extremities: RUE with a chronic deformity; otherwise, 5/5 strength throughout. Objective Last Vital Signs Temp 37.2 C 04/17/23 10:59 Pulse 79 04/18/23 14:01 Resp 22 04/18/23 14:01 BP 121/84 04/18/23 14:01 Pulse Ox 95 04/18/23 14:01 Laboratory Results - last 24 hr 04/15/23 04/18/23 16:21 06:17 Sodium 139 Potassium 3.7 Chloride 102 Carbon Dioxide 26.8 Anion Gap 10.2 BUN 16 Creatinine 0.8 Est GFR (CKD-EPI 2020) 100.69 Glucose 131 H Calcium 8.8 Magnesium 1.8 Urine Opiates Screen Cancelled Urine Methadone Screen Cancelled Ur Barbiturates Screen Cancelled Ur Tricyclics Screen Cancelled Ur Amphetamines Screen Cancelled U Benzodiazepines Scrn Cancelled Urine Cocaine Screen Cancelled Ur THC Screen Cancelled Time Spent with Patient Time Spent with Patient: 25-34 minutes Time was spent: preparing to see the patient(eg.review tests), obtaining and/or reviewing separately otained hiistory, ordering medications,tests, procedures, referring, communicating with other health director career, indepentently interpreting results, counseling the patient and care coordination
[2023-04-18] MEDS: Atorvastatin 40 MG TAB 80 MG PO (20:07)
[2023-04-18] MEDS: Melatonin 3 MG TAB 6 MG PO (23:23)
[2023-04-19] VITALS (9 sets, daily range): BP systolic 71–152; BP diastolic 52–92; PULSE 71–113; RESP 16–18; TEMP 36–36.8; O2SAT 94–98
--- NOTE | 2023-04-19 | DI.CT_ITS ---
Exam(s) CT HEAD WO EXAM: CT HEAD WO CLINICAL HISTORY: f/u basal ganglial hemorrhage; worsening symptoms. TECHNIQUE: Imaging Protocol: Axial computed tomography images with coronal and sagittal reformatted images were created and reviewed COMPARISON: CT CT BRAIN NECK CTA from 04/15/[address] HEAD WO from 04/15/[address] HEAD WO from 04/16/2023 FINDINGS: Ventricles and Extra axial spaces: Normal in size and morphology for the patient's age. Hemorrhage: The small hyper dense focus in the right basal ganglia measures 0.7 x 0.5 cm. This jamie res to 0.9 x 0.6 cm on the examination from 04/15/2023. No new evidence of intracranial hemorrhage is s een. Cerebral parenchyma: Normal. Midline shift: None. Brainstem/Cerebellum: Normal. Calvarium: Normal. Visualized Paranasal sinuses/Mastoids: There is mild mucosal thickening in the maxillary sinuses and left frontal sinus. The remaining visualized paranasal sinuses are clear as are the mastoid air cell s. Soft Tissues: Unremarkable. IMPRESSION: 1. Very slight decrease in size of the hyperdense region in the right basal ganglia. 2. No acute abnormality. RADIATION DOSE DELIVERED: 805.52mGy.cm Total DLP DATA REPOSITORY: All CT scans at this facility are submitted to the National Radiology Data Registry (NRDR) Dose Index Registry (DIR) with the [employer] ([employer]). RADIATION OPTIMIZATION: All CT scans at this facility use at least one of these dose optimization te chniques: automated exposure control; mA and/or kV adjustment per patient size (includes targeted exa ms where dose is matched to clinical indication); or iterative reconstruction.
[2023-04-19] MEDS: amLODIPine 5 MG TAB PO (07:34)
[2023-04-19] MEDS: Pantoprazole 40 MG TABCR PO ×2 (07:34→19:21)
[2023-04-19] MEDS: Tamsulosin 0.4 MG CAPCR PO (07:34)
[2023-04-19] MEDS: Venlafaxine 150 MG CAPCR PO (07:34)
[2023-04-19] MEDS: guaiFENesin 600 MG TABCR PO ×2 (07:35→19:21)
--- NOTE | 2023-04-19 08:54 | DI.VRAD_ITS ---
PROCEDURE INFORMATION: Exam: CT Head Without Contrast Exam date and time: 04/19/2023 7:54 AM Age: 62 years old Clinical indication: Condition or disease; Other: F/u basal ganglial hemorrhage; Worsening symptoms TECHNIQUE: Imaging protocol: Computed tomography of the head without contrast. COMPARISON: CT HEAD WO 04/16/2023 8:37 AM FINDINGS: Brain: There is stable asymmetric density in medial right globus pallidus. No evidence of surrounding edema. This may represent asymmetric basal ganglia calcification or hemorrhage. No mass effect or midline shift. Cerebral ventricles: No ventriculomegaly. Paranasal sinuses: Mild slightly polypoid mucosal thickening is again seen in bilateral maxillary sinuses and minimal linear mucosal thickening in inferior left frontal sinus. Mastoid air cells: No significant mastoid effusion. Bones/joints: No acute fracture. Soft tissues: Unremarkable as visualized. IMPRESSION: Stable asymmetric hyperdensity in right medial basal ganglia. No surrounding edema. Dictated and Authenticated by: Lelo Geller MD. Ordering:RAFIA Vale MD
--- NOTE | 2023-04-19 09:55 | PDOC.CMPRO ---
Date of service: 04/19/23 Time of Service: 15:54 Care Management Progress Note Progress Note Text Progress Note Text: S/O: Louis remains inpatient, closely monitored. Per RN, Adam he is eating a regular diet without issue. CM spoke with Farheen at [facility] who reports Louis is able to have TEDs but speech would be unavailable for up to four weeks-CM communicated information to MD who advised Louis may have speech consult while at [facility], and he will remain inpatient at this time. CM continues to follow. A: 62 year old male admitted to [facility] 04/15/23 for Hemorrhagic CVA, HTN P: Undetermined if Louis will discharge back to [facility] or be transferred to [facility]-decision will be made by [facility]-CM faxed clinical information for review. Louis will [facility] to [facility] custody when ready per MD, he will transport via secure facility van.
--- NOTE | 2023-04-19 13:26 | W.PM.PROGNOT ---
Date of Service Date of service: 04/19/23 Time of Service: 10:30 Assessment and Plan Assessment and plan (1) Hemorrhagic cerebrovascular accident (CVA): Start date: 04/15/23 Status: Acute Assessment and plan: Remains stable on CT today. Await neurology consult given new deficits. BP control is complicated by orthostatic hypotension. Continue norvasc for now but will discuss further BP management strategy with Dr Parra. Per [facility] neuro, etiology is hypertensive and target SBP<140. Continue norvasc. Syncope and collapse could have been symptoms of bleed. (2) Syncope and collapse: Start date: 04/15/23 Status: Acute Assessment and plan: As above Additionally, remains orthostatic, despite IVF overnight. D/c flomax. WIll monitor bladder scans. We will monitor his orthostatic vital signs with IV hydration and TEDs. (3) HTN (hypertension): Start date: 04/15/23 Status: Acute Assessment and plan: As above. Continue on norvasc. (4) Orthostatic hypotension: Status: Acute Assessment and plan: As above. TEDS. REmains orthostatic despite IVF. IVF d/c'ed. D/c flomax. Consider midodrine vs florinef. (5) Congenital hand deformity: Assessment and plan: Cleared by PT. Will need to follow up with OT. (6) GERD (gastroesophageal reflux disease): Assessment and plan: Continue doube dose of the PPI. Suspect might be related to dysphagia. Speech therapy recommendations: longer time for eating; wedge pillow. 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 Monitor bladder scans. Consider finasteride. (8) Depression with anxiety: Status: Chronic Assessment and plan: Continue effexor. (9) DVT prophylaxis: Status: Acute Assessment and plan: SCDs. Chemical DVT ppx is contraindicated in setting of acute cerebral hemorrhage. (10) Discharge planning issues: Status: Acute Assessment and plan: Full code Anticipate discharge to the correctional facility tomorrow. Subjective Subjective Interval history since last seen: The patient reported this morning that he was now having numbness in all 4 of his extremities. Repeat CT head was stable. He remains orthostatic and symptomatic of it (dizziness). Denies CP, SOB, n/v. Was evaluated by speech therapy: the patient appears to have evidence of damage from long-standing GERD with hypersensitive musculature and likely pharyngeal stasis. The recommendation to fix that appears to permit the patient to have a longer time eating, such as an extra 10 minutes, because if he eats too quickly, he coughs. He is also recommended to have a prescription for a wedge pillow. Exam Narrative Exam Narrative: General: A&Ox3, NAD HEENT: EOMI, MMM, able to move all 4 extremities Heart: RRR, no m/r/g Lungs: CTAB Abdomen: soft, nontender, nondistended Extremities: RUE with a chronic deformity; otherwise, 5/5 strength throughout. Objective Last Vital Signs Temp 36.5 C 04/19/23 11:03 Pulse 77 04/19/23 11:03 Resp 18 04/19/23 11:03 BP 127/80 04/19/23 11:03 Pulse Ox 94 04/19/23 11:03 Time Spent with Patient Time Spent with Patient: 25-34 minutes Time was spent: preparing to see the patient(eg.review tests), obtaining and/or reviewing separately otained hiistory, ordering medications,tests, procedures, referring, communicating with other health patient care coordinator, indepentently interpreting results, counseling the patient and care coordination
--- NOTE | 2023-04-19 13:54 | SP_ITS ---
Date of service: 04/19/23 Time of Service: 13:55 Subjective Clinical (Bedside) Swallow Evaluation Speech Language Pathology Patient referred for Clinical Swallow Evaluation from Dr Lay given patient complaint of globus sensation and pharyngeal stasis. Initially CONTINUOUS DRYOUT OPERATOR consulted as a precaution due to CVA, however, he was not evaluated because he had returned to baseline LOF and was tolerating baseline diet without s/sx aspiration. Over the weekend, however, he began to complain about his baseline dysphagia (see subjective below) and CONTINUOUS DRYOUT OPERATOR evaluated patient at request of hospitalist. Precautions: Fall, Standard, Full Code SUBJECTIVE: Patient received awake/alert, during lunch meal, agreeable to evaluation, able to communicate wants/needs effectively; able to demonstrate comprehension of recommendations for safe p.o. intake upon discharge once deemed medically stable.? Patient is pleasant and cooperative throughout. He reports occasional sensation of liquid going down the wrong tube (when further questioned he says this occurs once or twice per week), but is more concerned with sensation of pharyngeal stasis which he localizes to approximately the level of the valleculae. Current strategies: small bites, liquid wash, slow rate. However, due to being in [facility], he reports he is very slow due to needing to implement these strategies and given he is in [facility] he is not given enough time to finish his food. At times he will cough because he is trying to go faster. He reports losing weight because of this. He does report reflux, he sleeps on his left side at night which gives him some relief. Patient did have MBSS done in 2019 by Jess Perez who did not identify any functional deficits with his swallow, and concluded that his complaints were likely related to GERD-related changes to the cricopharyngeal muscle, sensation changes in setting of LPR, and possible impact of post-nasal drip buildup and xerostomia as medication side-effect. ? HPI: Pt is a 62 year old M with baseline dysphagia related to GERD, admitted with R thalamic CVA. Predisposing dysphagia risk factors: GERD Clinical signs of possible chronic dysphagia: ?Weight loss reported Precipitating dysphagia risk factors / triggering event: CVA, although patient appears to have returned to baseline function. ? IMPRESSIONS & PLAN: Suspect patient is with stable mild oral-pharyngeal dysphagia secondary to GERD and LPR-related sensation changes causing discomfort and anxiety, possibly complicated by laryngeal-pharyngeal tension and xerostomia. These sensation changes appear to be significant enough that they are causing significant issues with mealtime efficiency due to the strategies necessary to provide relief. Given level of reported weight loss in the past and extra time needed it would benefit the patient if he were allowed more time to finish his meals without pressure. Additionally, he was provided with additional recommendations for reflux management. Notably, he does not have a way to sleep on an incline. If he is able to receive a prescription for a wedge pillow this would greatly reduce his risk of nighttime reflux which in turn may improve his symptoms or at least prevent further effects of reflux on swallow function. Hospitalist was notified of these recommendations. Further CONTINUOUS DRYOUT OPERATOR services: not warranted at this time ? Instrumentation: N/A ? Diet Texture Modification(s): IDDSI Level(s) SOLIDS 7-Regular/Easy to Chew Solids / per patient's preference LIQUIDS 0-Thin Liquids Medication Intake: Whole with 0-Thin Liquids RISK MANAGEMENT: HOB upright as tolerated; upright for all PO intake. Encourage physical mobility as tolerated. Oral hygiene BID/2x per day ? Level of Assistance/Supervision: Independent PO intake only when awake/alert? Strategies/Adaptations/Assistive Equipment: Reduce auditory and/or visual distractions when eating Small sips and bites when eating Slow rate of intake Swallow between bites Alternate intake of liquids and solids Small+frequent meals throughout day Posture/Positioning Needs: Maintain upright position at least 30 minutes after meals Avoid meals/snacks 2-3 hours prior to reclining/sleeping Sleep with head of bed elevated to reduce likelihood of nocturnal reflux ----- PFSH All Active Problems?(Updated 04/16/23 @ 01:28 by Miguel Deshpande) Depression with anxiety (Chronic) BPH with obstruction/lower urinary tract symptoms (Chronic) Syncope and collapse (Acute) HTN (hypertension) (Acute) Hemorrhagic cerebrovascular accident (CVA) (Acute) Medical History? Congenital hand deformity GERD (gastroesophageal reflux disease) Surgical History? Appendectomy EGD - MAC (10/29/17) Reconstruction right hand ------ OBJECTIVE: Respiratory: room air, tolerates well Language: Grossly WFL Hearing: WFL Mental Status: Alert and Oriented Recall of current events intact Speech: WFL, though voice is mild-moderately breathy/rough and higher than average pitch for age/gender Oral Motor Exam: ? Dentition ? Natural dentition ? Fair condition ? Oral Mucosa ? Dry ? Poor oral care ? CN V - Trigeminal ? Jaw Movement ? WFL ? CN VII ? Labial/Facial ? WFL ? CN IX ? Palate ? WFL ? CN X ? Laryngeal ? Vocal quality ? Rough ? Breathy ? Abnormal pitch ? Volitional cough ? Sharp & strong ? CN XII ? Lingual ? WFL ? Volitional Swallow ? Robust laryngeal elevation ? Adriana Swallow Protocol Results ? PASS: Complete/uninterrupted without s/sx aspiration ? Food items tested: ?? Ice: X IDDSI 0: IDDSI 1: IDDSI 2: IDDSI 3: IDDSI 4: IDDSI 5: IDDSI 6: X IDDSI 7: Pill/tablet: Oral phase: X WFL Leakage from mouth Difficulty with bolus manipulation Difficulty with a-p transport Difficulty chewing Pocketing Residue Pharyngeal phase: WFL Delayed swallow initiation Reduced hyolaryngeal elevation/excursion Cough after swallow Voice change after swallow? Throat clearing? X Endorsed stasis? Provided education to: Patient, MD, Topics Addressed: anatomy/physiology of swallowing mechanism, overt s/sx to monitor for re: potential aspiration of food / liquids, recommendations for improved oral care, relationship between respiratory function changes and deglutition, Rationale for recommendations as outlined below, reflux education Outcome: Verbalized/demonstrated understanding CONTINUOUS DRYOUT OPERATOR CPT Code: 22869 Clinical Swallowing Evaluation - 30 minutes R13 Dysphagia: - unspecified Coding Diagnoses CPT Codes EVALUATE SWALLOWING FUNCTION - 66308 ([id number])
--- NOTE | 2023-04-19 15:54 | PHA.REVIEW2 ---
Pharmacy Admission Review - Admission Clinical Review (Last Reviewed 04/15/23 @ 23:53 by Miguel Deshpande) Orthostatic hypotension (Acute) Discharge planning issues (Acute) DVT prophylaxis (Acute) Elevated LDL cholesterol level (Acute) Hyperglycemia (Acute) Hypokalemia (Acute) Syncope and collapse (Acute) HTN (hypertension) (Acute) Hemorrhagic cerebrovascular accident (CVA) (Acute) No Known Allergies Allergy (Unverified 04/15/23 14:38) Resuscitation Status Full Code Height 5 ft 8 in Weight 67.6 kg - Comments Comments/Follow Ups: BP has been well controlled with the addition of amlodipine 5mg (target SBP <140), still experiencing orthostatic hypotension -- neuro is consulted - Renal Dosing Renal Dosing: BUN 16 mg/dL (7-18) 04/18/23 06:17 Creatinine 0.8 mg/dL (0.70-1.30) 04/18/23 06:17 Medications needing adjustments: Reviewed List of meds needing interventions: eCrCl 74 ml/min - Anticoagulation Anticoagulation: Hgb 15.7 g/dL (13.5-17.5) 04/17/23 09:49 Hct 45.5 % (40.0-50.0) 04/17/23 09:49 Plt Count 219 10^3/uL (130-400) 04/17/23 09:49 INR 1.0 (0.9-1.1) 04/15/23 14:51 Creatinine 0.8 mg/dL (0.70-1.30) 04/18/23 06:17 DVT Prophylaxis: Reviewed (SCDs only, chemical dvt ppx is contraindicated (hemorrhagiv CVA)) - Opiate Usage Evaluate Pain Scale/Pains Meds: N/A - Relevant Labs Sodium 139 mmol/L (136-145) 04/18/23 06:17 Potassium 3.7 mmol/L (3.5-5.1) 04/18/23 06:17 Chloride 102 mmol/L (98-107) 04/18/23 06:17 Magnesium 1.8 mg/dL (1.8-2.4) 04/18/23 06:17 Electrolytes, C-Reactive P, ESR: Reviewed - DM Control DM Control: Glucose 131 mg/dL (74-106) H 04/18/23 06:17 Hemoglobin A1c 6.1 % (<5.7) H 04/16/23 05:40 DM Control: N/A - Cardiac Review Cardiac Review: Troponin I < 50 ng/L (<or=60) 04/15/23 18:26 BP, HR, EF%: Reviewed (started on amlodipine, BP has been well controlled in the past 24 hours) - Qtc Review QTc: Reviewed If Elevated, List meds needing intervention: QTc 427 on admission - IV to PO Switch IV Medications: Reviewed - Home Meds Home Med List reviewed: Reviewed Relevent Home Meds Not ordered & why?: not ordered: tamsulosin (discontinued this admission on 04/19) - Current meds Current Medication Order Review: Reviewed
--- NOTE | 2023-04-19 17:54 | NCONE_ITS ---
Date of service: 04/19/23 Time of Service: 17:54 Assessment and Plan Assessment and plan (1) Orthostatic hypotension: Status: Acute (2) Hemorrhagic cerebrovascular accident (CVA): Status: Acute (3) HTN (hypertension): Status: Acute Assessment and plan: #1. Acute hemorrhagic stroke. We discussed this diagnosis as well as etiology, prognosis, and treatment options. No further testing at this time. Discussed need for long-term BP control. Complicated by #2 as below. #2. Orthostatic hypotension. I would stop tamsulosin to see if he is still orthostatic off it. If still orthostatic, could consider medications - though tricky given hypertension and hemorrhagic stroke. For that reason would try first pyridostigmine 60mg TID which would not further increase his BP. ADRs mainly GI effects. If BP continues to run high and he remains orthostatic, could consider switching amlodipine to shorter acting verapamil and give HS when he is supine and BP is elevated. He will need neurology f/up after d/c. Complicated by [facility] custody and he is not clear currently what his long-term plans are currently. So, would defer to DOC to arrange this f/up care (4-6 weeks following discharge ideally). History of Present Illness History of Present Illness Chief Complaint: stroke Narrative: Handedness: LEFT (no other LH, born with right arm/hand deformities) Mr. Lauren is a 62 year old with hypertension, hyperlipidemia, pre-diabetic, depression, anxiety, BPH - and ?cerebral palsy? ?cognitive impariment? Mr. Lauren was admitted on 04/15/23 after a syncopal episode followed by numbness in the left arm/hand and left foot, after being outside in the heat for some time. Work-up notable for small right thalalmic acute hemorrhage. Initial BPs up to 180s and treated with cardene gtt x 24hr, then switched to PO amlodipine. Work- up as below with no underlying vascular malformation or prior evidence of hemorrhage/microhemorrhage. He otherwise notes daily episodes of lightheadedness with position changes/upon standing for 1-2 years with no prior episodes of syncope until now. He has been orthostatic tilt positive here in the hospital despite decreasing doses of amlodipine - received 5mg this am. This am, he said he got up to perform his am ablutions when he felt lightheaded, vision narrowing/going black, tingling in all extremities at which time he artur oleary fell/passed out, but staff there to get him and got him to bed to rest. He notes he is on tamsulosin for about 1-2 years for a weak stream that improved with the medication. He is currently under [facility] custody. Normally lives in [place], [place]. Work-up: -CTH (04/15/23): small acute right thalamic hemorrhage. Also note particular thickening of right frontal skull. I reviewed these images personally and this is my personal interpretation. -CTA head/neck (04/15/23): no vascular malformations. I reviewed these images personally and this is my personal interpretation. -MRI brain w/o (04/15/23): c/w acute right thalamic hemorrhage. No evidence of prior hemorrhage. I reviewed these images personally and this is my personal interpretation. -TTE (04/16/23): EF 55-60%, no wall motion abnormalities. LA normal. -Labs: LDL 115, A1c 6.1, TSH 2.42 -CTH (04/19/23): evolving, slightly smaller R thalamic hemhorrage. I reviewed these images personally and this is my personal interpretation. Review of Systems All systems reviewed & are unremarkable except as noted in HPI and below PFSH All Active Problems Orthostatic hypotension (Acute) Discharge planning issues (Acute) DVT prophylaxis (Acute) Elevated LDL cholesterol level (Acute) Hyperglycemia (Acute) Hypokalemia (Acute) Depression with anxiety (Chronic) BPH with obstruction/lower urinary tract symptoms (Chronic) Syncope and collapse (Acute) HTN (hypertension) (Acute) Hemorrhagic cerebrovascular accident (CVA) (Acute) Medical History Congenital hand deformity GERD (gastroesophageal reflux disease) Surgical History Appendectomy EGD - MAC (10/29/17) Reconstruction right hand Social History Smoking/Tobacco Use Status: Never Smoking risk assessment performed?: Yes Drug use: Never Visit Medication and Allergies Active Medications Generic Name Dose Route Start Last Admin Trade Name Freq PRN Reason Stop Dose Admin Acetaminophen 0 mg 04/15/23 21:44 04/18/23 09:24 Acetaminophen 325 Mg Tab PO 650 mg Q4H PRN PRN Administration Al Hydrox/Mg Hydrox/Simethicone 30 ml 04/15/23 21:44 Mylanta Suspension 30 Ml Cup PO Q2H PRN PRN Amlodipine Besylate 5 mg 04/17/23 08:30 04/19/23 07:34 Amlodipine 5 Mg Tab PO 5 mg DAILY NADIR Administration Atorvastatin Calcium 80 mg 04/16/23 20:00 04/18/23 20:07 Atorvastatin 40 Mg Tab PO 80 mg QPM NADIR Administration Benzocaine/Menthol 1 each 04/17/23 10:01 Benzocaine/Menthol Lozg 15/Box SUC Q6H PRN PRN Dimethicone/Zinc Oxide 0 gm 04/15/23 21:44 Malik Protect Cream 142 Gm Tube TP PRN PRN Docusate Sodium 100 mg 04/15/23 21:44 Docusate Sodium 100 Mg Cap PO TID PRN PRN Guaifenesin 600 mg 04/17/23 20:00 04/19/23 07:35 Guaifenesin 600 Mg Tabcr PO 600 mg BID NADIR Administration Sodium Chloride 500 mls @ 0 mls/hr 04/15/23 21:44 Saline 500ml Bag IV PRN PRN As Directed IV Miscellaneous Supplies 1 each 04/15/23 21:45 Iv Access IV DIRECTED NADIR Magnesium Hydroxide 30 ml 04/15/23 21:44 Milk Of Magnesia 30 Ml Cup PO DAILY PRN PRN Melatonin 6 mg 04/16/23 22:00 04/18/23 23:23 Melatonin 3 Mg Tab PO 6 mg HS NADIR Administration Metoprolol Tartrate 2.5 mg 04/18/23 18:20 Metoprolol 5 Mg/5 Ml Vial IVP Q6H PRN PRN Pantoprazole Sodium 40 mg 04/17/23 20:00 04/19/23 07:34 Pantoprazole 40 Mg Tabcr PO 40 mg BID@0730,2000 NADIR Administration Polyethylene Glycol 17 gm 04/15/23 21:44 Polyethylene Glycol 3350 17 Gm Packet PO DAILY PRN PRN Constipation Sodium Chloride 0 ml 04/15/23 21:44 04/18/23 09:23 Normal Saline Flush 10 Ml Syr IVP 20 ml PRN PRN Administration Venlafaxine HCl 150 mg 04/16/23 08:30 04/19/23 07:34 Venlafaxine 150 Mg Capcr PO 150 mg DAILY NADIR Administration Allergies No Known Allergies Allergy (Unverified 04/15/23 14:38) Exam Narrative Exam Narrative: Physical Exam: Gen: Patient of apparent stated age, NAD Head and face: no facial or cranial abnormalities Neck: Supple, no meningismus, no occipital tenderness CV: + S1, S2, RRR, no murmur Resp: CTA B/L Abd: soft, nontender, nondistended Ext: No edema. No clubbing or cyanosis. R hand and arm deformities. Neuro Exam: Language: fluency, naming, repetition, and comprehension intact; Mental Status: AAOx3, current events intact, fund of knowledge limited Speech: no dysarthria Cranial nerves: Funduscopy: not performed CN II: visual roberto intact CN III, IV, : extraocular movements intact, no nystagmus, pupils symmetric and reactive to light CN V: face sensation intact to LT and PP CN VII: no facial asymmetry noted CN VIII: hearing intact bilaterally CN IX, X: palate rises symmetrically CN XI: trapezius/SCM 5/5 bilaterally CN XII: protrudes tongue symmetrically Sensory: intact to PP, vibration, and joint position in all extremities; reduced LT in left hand Motor: bulk and tone intact in LUE and bilateral LE. Fine motor movements intact on L with no L pronator drift. Strength 5/5 throughout the LUE and bilateral LE including the deltoids, biceps, triceps, wrist extensors, hip flexors, knee flexors, knee extensors, ankle flexors, and ankle extensors. RUE proximal strength 5/5. Reflexes: 2+ at the biceps, triceps, brachioradialis, patella, and achilles tendons bilaterally; toes down going bilaterally; Coordination: FTN and HTS intact bilaterally Gait: not seen Results Last Vital Signs Temp 97.7 F 04/19/23 11:03 Pulse 100 H 04/19/23 15:22 Resp 18 04/19/23 11:03 BP 127/80 04/19/23 11:03 Pulse Ox 94 04/19/23 11:03 Labs 04/17/23 09:49 04/18/23 06:17
[2023-04-19] MEDS: Atorvastatin 40 MG TAB 80 MG PO (19:21)
[2023-04-19] MEDS: Melatonin 3 MG TAB 6 MG PO (21:16)
[2023-04-20] VITALS (8 sets, daily range): BP systolic 80–148; BP diastolic 50–88; PULSE 64–102; RESP 16–19; TEMP 36–37.1; O2SAT 95–100
[2023-04-20] MEDS: Venlafaxine 150 MG CAPCR PO (09:25)
[2023-04-20] MEDS: guaiFENesin 600 MG TABCR PO ×2 (09:26→21:48)
[2023-04-20] MEDS: Pantoprazole 40 MG TABCR PO ×2 (09:32→21:47)
--- NOTE | 2023-04-20 14:23 | CHAPLAIN ---
Louis is in the room supported by guards, and resting on the bed when I visit. I explained my role and offered support. Louis requested a copy of [employer] and I brought him the latest issue.
--- NOTE | 2023-04-20 17:00 | PDOC.CMPRO ---
Date of service: 04/20/23 Time of Service: 17:00 Care Management Progress Note Progress Note Text Progress Note Text: S/O: Louis remains inpatient, closely monitored per MD he will remain inpatient at this time. CM continues to follow. A: 62 year old male admitted to [facility] 04/15/23 for Hemorrhagic CVA, HTN P: Undetermined if Louis will discharge back to [facility] or be transferred to [place]-decision will be made by [facility]-CM faxed clinical information for review (Farheen Guan#[phone]). Louis will discharge back to [facility] custody when ready per MD, he will transport via secure facility van.
--- NOTE | 2023-04-20 17:04 | W.PM.PROGNOT ---
Date of Service Date of service: 04/20/23 Time of Service: 17:05 Assessment and Plan Assessment and plan (1) Orthostatic hypotension: Status: Acute (2) Hemorrhagic cerebrovascular accident (CVA): Status: Acute (3) HTN (hypertension): Status: Acute Assessment and plan: #1. Acute hemorrhagic stroke. Again discussed need for long-term BP control. Complicated by #2 as below. #2. Orthostatic hypotension. Given no improvement with cessation of tamsulosin, would consider medication. Options tricky given hypertension and hemorrhagic stroke. For that reason would try first pyridostigmine 60mg TID (am, noon, 4pm deanna) which would not further increase his BP. ADRs mainly GI effects. If BP continues to run high and he remains orthostatic, could consider switching amlodipine to shorter acting verapamil and give HS when he is supine and BP is elevated. He will need neurology f/up after d/c. Complicated by DOC custody and he is not clear currently what his long-term plans are currently. So, would defer to DOC to arrange this f/up care (4-6 weeks following discharge ideally). Subjective Subjective Interval history since last seen: Tamsulosin held this morning. He reports no change in his dizziness with position changes. No change in urination. L hand and foot numbness also remains unchanged. Amlodipine is being switched to HS verapamil. Exam Narrative Exam Narrative: Physical Exam: Constitutional: Patient of apparent stated age, well nourished, well developed, no acute distress Neuro: MS/Language/Speech: Alert, oriented, clear language (fluency and comprehension), no dysarthria CN: no facial asymmetry, hearing intact Motor: Normal bulk and tone. FMM intact, no pronator drift. Coordination: Finger to nose performed without dysmetria Objective Last Vital Signs Temp 97.9 F 04/20/23 14:46 Pulse 73 04/20/23 15:10 Resp 16 04/20/23 14:46 BP 128/72 04/20/23 15:59 Pulse Ox 97 04/20/23 14:46 Time Spent with Patient Time Spent with Patient: <25 minutes Time was spent: preparing to see the patient(eg.review tests), referring, communicating with other health career development manager and counseling the patient
--- NOTE | 2023-04-20 19:01 | W.PM.PROGNOT ---
Date of Service Date of service: 04/20/23 Time of Service: 19:01 Assessment and Plan Assessment and plan (1) Hemorrhagic cerebrovascular accident (CVA): Start date: 04/15/23 Status: Acute Assessment and plan: Discussed with Dr Parra. BP control is complicated by orthostatic hypotension. Will trial a combination of mestinon for the orthostasis during the day and verapamil at night. Target SBP<140. Syncope and collapse could have been symptoms of bleed. Statin d/c'ed. No role given ICH. (2) Syncope and collapse: Start date: 04/15/23 Status: Acute Assessment and plan: As above Flomax d/c'ed. Trial mestinon. WIll monitor bladder scans. Continue TEDs. (3) HTN (hypertension): Start date: 04/15/23 Status: Acute Assessment and plan: As above. Will trial verapamil at hour of sleep. (4) Orthostatic hypotension: Status: Acute Assessment and plan: As above. TEDS. Flomax d/c'ed. Trial mestinon. (5) Congenital hand deformity: Assessment and plan: Cleared by PT. Will need to follow up with OT. (6) GERD (gastroesophageal reflux disease): Assessment and plan: Continue doube dose of the PPI. Suspect might be related to dysphagia. Speech therapy recommendations: longer time for eating; wedge pillow. 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 Trial finasteride. Monitor bladder scans. (8) Depression with anxiety: Status: Chronic Assessment and plan: Continue effexor. (9) DVT prophylaxis: Status: Acute Assessment and plan: SCDs. Chemical DVT ppx is contraindicated in setting of acute cerebral hemorrhage. (10) Discharge planning issues: Status: Acute Assessment and plan: Full code Anticipate discharge to the correctional facility tomorrow. Subjective Subjective Interval history since last seen: Mr Lauren states that he is still dizzy when he closes his eyes. The numbness in his LUE/LLE is constant now, but sometimes it's better and sometimes it's worse. No CP, SOB, n. Remains orthostatic. Discussed with Dr Parra who recommends starting mestinon which could help treat orthostasis without causing supine hypertension. Exam Narrative Exam Narrative: General: A&Ox3, NAD HEENT: EOMI, MMM, able to move all 4 extremities Heart: RRR, no m/r/g Lungs: CTAB Abdomen: soft, nontender, nondistended Extremities: RUE with a chronic deformity; otherwise, 5/5 strength throughout. Objective Last Vital Signs Temp 36.6 C 04/20/23 14:46 Pulse 73 04/20/23 15:10 Resp 16 04/20/23 14:46 BP 128/72 04/20/23 15:59 Pulse Ox 97 04/20/23 14:46 Time Spent with Patient Time Spent with Patient: 25-34 minutes Time was spent: preparing to see the patient(eg.review tests), obtaining and/or reviewing separately otained hiistory, ordering medications,tests, procedures, referring, communicating with other health director of health care marketing, indepentently interpreting results, counseling the patient and care coordination
[2023-04-20] MEDS: Calcium Carbonate *TUMS* 500 MG CHEW 1000 MG PO (21:46)
[2023-04-20] MEDS: Melatonin 3 MG TAB 6 MG PO (21:48)
[2023-04-20] MEDS: Verapamil 80 MG TAB 40 MG PO (21:48)
[2023-04-21] VITALS (7 sets, daily range): BP systolic 91–156; BP diastolic 63–87; PULSE 64–93; RESP 17–18; TEMP 36.3–37.4; O2SAT 94–99
--- NOTE | 2023-04-21 03:38 | NUR.NOTE ---
IV attempt 0325 am I attempted an IV on patient left anticubital fossa. pt was lying supine. site cleaned with alcohol and chlorahexadine prior to insertion. 22g IV catheter inserted with positive blood return. When i flushed with about 3-5ml of NS. the patient vein bubbled slightly. at that time. I stopped dc'd the cannula. and placed guaze and tape over insertion sight. Pt tolerated proceedure without complaint. end note. Nursing Note:
[2023-04-21] MEDS: Calcium Carbonate *TUMS* 500 MG CHEW PO (05:18)
[2023-04-21] MEDS: Pantoprazole 40 MG TABCR PO (08:04)
[2023-04-21] MEDS: Venlafaxine 150 MG CAPCR PO (08:11)
[2023-04-21] MEDS: Finasteride 5 MG TAB PO (08:12)
[2023-04-21] MEDS: guaiFENesin 600 MG TABCR PO (08:12)
--- NOTE | 2023-04-21 12:45 | IN_ITS ---
Date of service: 04/21/23 Time of Service: 11:43 PT Notes Visit Reasons: Hemorrhagic CVA, HTN Physical Therapy Inpatient Initial Evaluation Date: 04/21/2023 Referring Doctor: Akanksha Lay,? PT Orders: PT CONSULT: Limited ability Precautions: Fall. Standard. Activity as tolerated. Patient Profile/Admitting Diagnosis: Louis is a 62-year-old male who presented to the ED on 04/15/2023 due to a syncopal episode and report of left upper extremity numbness and paresthesias.? He is admitted for management of acute hemorrhagic cerebrovascular accident, syncope and collapse, hypertension, depression and anxiety. Discharge compicated by hypotensive epsiode with PT referral sent to determine stability of gait and discharge recommendations. PMHX: All Active Problems?(Updated 04/16/23 @ 01:28 by Miguel Deshpande) Depression with anxiety (Chronic) BPH with obstruction/lower urinary tract symptoms (Chronic) Syncope and collapse (Acute) HTN (hypertension) (Acute) Hemorrhagic cerebrovascular accident (CVA) (Acute) Medical History? Congenital hand deformity GERD (gastroesophageal reflux disease) Surgical History? Appendectomy EGD - MAC (10/29/17) Reconstruction right hand Social History/Home Situation: Incarcerated.? Independent with all aspects of ADLs prior to admission.? No previous falls. Equipment Owned/DME: None SUBJECTIVE: Per Officers Ward and Afshin, patient will only need to walk about 200 feet from his cell to the dining room. Initially denied feeling cloudy or having some increased pressure in head, was able to tolerate 500 feet of level surface ambulation independently before reporting fatigue and sensation of being cloudy. Objective: General Observation: Supine in bed.? Congenital deformity in R UE noted.? Shackles on R leg and L forearm. Officers Afshin and Ward present in room throughout evaluation. Mental Status: Alert and oriented as to person, place, time, and purpose. Able to pay attention, focus, and respond appropriately. Pain: Denies Vital Signs: WNL as closely monitored via tele ROM: Right Upper Extremity: ? Shoulder Flexion allows up to 90 degrees. Shoulder abduction allows up to 90 degrees.? Elbow flexion WFL. Wrist flexion WFL. Functional opening and closing of hand impaired. Left Upper Extremity:? Shoulder Flexion allows up to 90 degrees. Shoulder abduction allows up to 90 degrees.? Elbow flexion WFL. Wrist flexion WFL. Functional opening and closing of hand WFL. Right Lower Extremity: Hip flexion WFL. Hip abduction WFL. Knee flexion WFL. Ankle dorsiflexion WFL. Ankle plantarflexion WFL. Left Lower Extremity: Hip flexion WFL. Hip abduction WFL. Knee flexion WFL. Ankle dorsiflexion WFL. Ankle plantarflexion WFL. Strength: Right Upper Extremity: Shoulder flexors 3-/5. Shoulder abductors 3-/5. Elbow flexors 4-/5. Elbow extensors 4-/5. Medical Field Representative limited due to congenital hand deformi ty. Left Upper Extremity: Shoulder flexors 3-/5. Shoulder abductors 3-/5. Elbow flexors 4/5. Elbow extensors 4/5. Medical Field Representative strong. Right Lower Extremity: Hip flexors 4/5. Hip abductors 4/5. Knee flexors 5/5. Knee extensors 5/5. Ankle dorsiflexors 4/5. Ankle plantarflexors 4/5. Left Lower Extremity: Hip flexors 4/5. Hip abductors 4/5. Knee flexors 5/5. Knee extensors 5/5. Ankle dorsiflexors 4/5. Ankle plantarflexors 4/5. Bed Mobility/Transfers: Rolling independent Supine to sit independent Sit to supine independent Sit to stand independent Stand to sit independent Gait: Instructed patient with level surface ambulation of about 500 feet independently. Officer Afshin on one side and Officer Ward doing wheelchair follow in case dizziness recurs. Eli diminished due to shackles on B feet. Balance better with wrist shackles removed, facilitating better arm swing.? Base of support limited and step length and height decreased due to physical restriction from shackles, but no LOB. Needed to sit down due to report of fatigue. Reported dizziness upon standing up after resting on chair. BP after walking in sitting 136/83 mmHg, 64 bpm, 91% on RA. BP upon standing up after seated rest 110/78 mmHg, HR 74 bpm, 100% on RA. Stated being cloudy and tired when he stood up but resolved with seated rest. Balance: Static Sitting: Normal Dynamic Sitting: Normal Static Standing: Fair Dynamic Standing: Fair Special Tests: Mobility Limitations Standardized Measure [facility] AM-PAC 6 clicks Basic Mobility Inpatient Short Form: Raw Score: 24? CMS Score: 0% deficit? ? ? 30-second chair rise score: 5x Informed Consent/Education:? Patient was instructed in purpose of PT consult and plan of care. Agreeable to proceed with established PT POC to achieve personal goals. Assessment: Independently navigated 500 feet with no physical assistance. Officers present only because of safety protocol. Symptomatic at end of 500 feet needing seated rest. Reported some tingling in the right upper extremity after the walk that resolved with rest. No report of tingling in the R lower extremity as previously reported in last Wednesday's eval. BP change (see above) not as low as it was initially earlier this morning. BP decrease limiting patient's activity toleance for walking at this time. History: 62-year-old male with past medical history as indicated above Examination: As above Presentation: Evolving Decision Makin low complexity Goals: Goals X1 week 1. Independent gait on level surface with use of no AD for at least 500 feet WITHOUT report of dizizness 2. Independent with home exercise program Plan of Care/Treatment Plan: -Will continue to walk with patient and reassess BP as needed to increase safety of level surface ambulation. -Increase independence of stair negotiation as able. DISCHARGE RECOMMENDATIONS: [X] ? Home with no services. If hypotension remains unmanaged, may require stand by assist from correctional facility personnel for safety. [] ? Home with services.? [] ? Home with outpatient PT [] [] ? SNF for continued rehabilitation [] [] ? Sr. [employer] Care [] [] ? SNF versus LTC based on ability to participate and progress [] TREATMENT CODE/TIME: 15946 x 20 minutes, 97380 x 11 minutes beginning at 11:43 AM. Thank you for the opportunity to participate in the care of this patient. Mariah Drake PT, DPT, CLT [facility] [place], [place]
--- NOTE | 2023-04-21 14:20 | PDOC.CMPRO ---
Date of service: 04/21/23 Time of Service: 14:20 Care Management Progress Note Progress Note Text Progress Note Text: S/O: Louis remains inpatient, closely monitored per MD he will remain inpatient at this time due to ongoing orthostatic issues; CM faxed updated clinicals to [facility]. CM continues to follow. A: 62 year old male admitted to [facility] 04/15/23 for Hemorrhagic CVA, HTN P: Undetermined if Louis will discharge back to [facility] or be transferred to [facility]-decision will be made by [facility] faxed clinical information for review (Farheen Guan#[phone]). Louis will discharge back to corrections custody when ready per MD, he will transport via secure facility van.
--- NOTE | 2023-04-21 15:25 | PT.INTREAT ---
Date of service: 04/21/23 Time of Service: 15:06 PT Notes Visit Reasons: Hemorrhagic CVA, HTN Inpatient Physical Therapy Treatment Note [facility] Date: 04/21/23 PRECAUTIONS: Fall, standard, activity as tolerated, Correctional Officers in attendance, leg irons in place. SUBJECTIVE: supine in bed, agreeable to therapy. Right arm and right leg shackles in place. OBJECTIVE: PAIN: none reported BED MOBILITY/TRANSFERS Rolling L/R: independent Supine-sit: independent Sit-supine: independent Sit-stand: independent Stand-sit: independent Bed-Chair: independent Chair-bed: independent GAIT Assistive Device: none Weight bearing: full Assist: standby Distance: 500 feet Deviation: step length limited by leg irons. Patient reports no dizziness, no lightheadedness; reports feeling fatigue in his legs, reports feeling short of breath in the last 10 feet before his room, needs to sit down at that point. ASSESSMENT: Patient tolerates therapy well PLAN: continue strengthening per plan of care TREATMENT CODE/TIME: 22853 gait 18 minutes beginning at 15:06
--- NOTE | 2023-04-21 16:00 | W.PM.DS.N ---
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 (8) Depression with anxiety: Status: Chronic (9) Hypokalemia: Status: Acute (10) Elevated LDL cholesterol level: Status: Acute (11) Congenital hand deformity: (12) Prediabetes: Status: Acute Discharge Plan Disposition [facility] Dis[facility] Condition: Stable Discharge Details Reason For Visit: Hemorrhagic CVA, HTN Admit Date/Time: 04/15/23 21:44 Admit Provider: Miguel Deshpande Attending Provider: Miguel Deshpande Primary Care Provider: Antonia Falcon Hospital Course Hospital Course: Mr Lauren is a 62 year old male with PMHx of previously being told that he had hypotension, as well as h/o BPH, GERD, depression and anxiety, who was admitted to [facility] ICU under the hospitalist service on 04/15/23 after having a syncopal/unresponsive episode at the correctional facility after being outside on a hot day. His ER workup revealed evidence of 9 x 6 mm right basal galnglial hemorrhage, confirmed by MRI. His symptoms were primarily LUE/LLE numbness which was wax and waning. Neurology at [facility] did comment that this location for hemorrhage is classically hemorrhagic, but traumatic origin was difficult to rule out. Neurology recommended BP control with target SBP<140. The patient was started on nicardipine drip with good BP control. His repeat of the head was stable. CTA did not show any aneurysms or AV malformations. He was then transitioned to amlodipine. Unfortunately, while his BP was controlled while supine, he became hypotensive on sitting and standing, and symtpomatically so, c/w orthostatic hypotension. This matches the story of previously diagnosis of hypotension and raises the question of the patient having been orthostatic previously. His tamsulosin was discontinued. TEDs were started. He was transferred out of the ICU on 04/17/23. On 04/19/23, the patient developed bilateral symptoms (BUE/BLE numbness and tingling). CT head was unchanged.Dr Parra was consulted to help with management of his supine hypertension and orthostatic hypotension in setting of cerebral hemorrhage and these new symptoms. Her recommendations were to stop amlodipine, start verapamil at night for management of supine hypertension and to add mestinon initially 60 mg TID during awake hours to help minimize orthostasis. Despite these measures, the patient remained orthostatic and symptomatic. Mestinon was then increased to 120 mg PO TID. There is still a degree of symptomatic orthostasis. We do recommend that the patient, until his symptoms of orthostasis improve, be in the wheelchair, especially given the history of his recent ICH. He will need neurology follow up in 4-6 weeks. He needs to continue to wear TEDS. As far stopping his flomax, the patient was started on finasteride instead. While he states his stream became weaker, his bladder scans have not shown clinically significant urinary retention. He does not require a mae catheter on discharge. He may benefit from a urology consult if he continues to be symptomatic. The patient was evaluated by speech therapy for reports of dysphagia. It is felt to be oropharyngeal dypshagia as a consequence of long-standing GERD. The patient is noted to have pharyngeal stasis if he eats too quickly and the recommendations is for him to have extra time while eating, even if it is extra 10 minutes. He is also recommended to sleep on a wedge pillow to help with his GERD. His medications have been maximally optimized at this point. He is felt stable for discharge. I [facility] where [facility] an [facility]. Specifically, I have spoken with Kriss Yan and Dr Gricelda Miner. Care for patient as well as completion of his discharge summary on day of discharge took 80 minutes. Home Meds and New Rx's Prescriptions: New calcium carbonate 200 mg calcium (500 mg) Tablet,Chewable 1,000 mg PO HS Qty: 60 0RF verapamil 80 mg Tablet 40 mg PO HS Qty: 30 0RF finasteride 5 mg Tablet 5 mg PO DAILY Qty: 30 0RF pantoprazole 40 mg Tablet,Delayed Release (Dr/Ec) 40 mg PO BID@0730,2000 Qty: 60 0RF pyridostigmine bromide [Mestinon] 60 mg tablet 120 mg PO DIRECTED Qty: 180 0RF Rx Instructions: TID at 0800, 1200, 1600 Continued venlafaxine 150 mg Capsule,Extended Release 24hr 150 mg PO DAILY melatonin 3 mg Tablet 6 mg PO DAILY calcium carbonate [Calcium Antacid] 200 mg calcium (500 mg) Tablet,Chewable 1,000 mg PO PRN PRN Discontinued aspirin [Olvin Low Dose Aspirin] 81 MG tablet,delayed release (DR/EC) 81 mg PO DAILY pantoprazole 40 MG tablet,delayed release (DR/EC) 40 mg PO DAILY tamsulosin 0.4 mg Capsule 0.4 mg PO DAILY Discharge Instructions Instructions: Verapamil (By mouth), Syncope (DC), Intracerebral Hemorrhage (DC), Hypotension (DC), Prediabetes (DC) Additional Instructions: Return to the hospital with any new neurologic deficits, if you develop a fever, bleeding, chest pain, or shortness of breath. Follow up with neurology in 4-6 weeks. Sleep on a wedge pillow to prevent GERD. We recommend having additional time with eating and eating slowly. Until your orthostatic hypotension resolves or you no longer feel dizzy, we recommend you remain in a wheelchair. Care Plan Goals: Discharge to [facility] Stand Alone Forms: Nursing Discharge Form Activity:: Activity as Tolerated Equipment/Supplies:: wheelchair Diet:: As Tolerated Discharge Orders Discharge Orders: Discharge Order (Routine); Ordered 04/21/23 Ordered By: Akanksha Lay DS: Summary Time Spent with Patient providing and/or coordinating discharge services: Greater than 30 minutes Status at Discharge Functional status at discharge: wheelchair bound Overall status at discharge: patient is progressing back to baseline Mental Status: mental status grossly normal Speech and Movement: speech and movement normal Mood: congruent mood Affect: normal affect Exam Narrative Exam Narrative: General: A&Ox3, NAD HEENT: EOMI, MMM, able to move all 4 extremities Heart: RRR, no m/r/g Lungs: CTAB Abdomen: soft, nontender, nondistended Extremities: RUE with a chronic deformity; otherwise, 5/5 strength throughout. Psych Mental Status: mental status grossly normal Speech and Movement: speech and movement normal Mood: congruent mood Affect: normal affect DS: Data Vitals/I&O Vitals and I&O: Vital Signs Temperature 36.6 C 04/21/23 15:25 Temperature Source Tympanic 04/21/23 15:25 Pulse 68 04/21/23 15:25 Pulse Rhythm Regular 04/21/23 08:00 Pulse 81 04/18/23 14:01 Respiratory Rate 17 04/21/23 15:25 Respiratory Effort Normal, Non-Labored 04/21/23 14:55 Respiratory Depth Normal 04/21/23 14:55 Respiratory Pattern Normal 04/21/23 14:55 Blood Pressure 111/73 04/21/23 15:25 Blood Pressure Mean 91 04/18/23 14:01 Blood Pressure Position Supine 04/17/23 10:59 Pulse Oximetry 96 04/21/23 15:25 Oxygen Delivery Method Room Air 04/21/23 15:25 Oxygen Flow Rate 0 04/21/23 15:25 Pain Level 0 04/21/23 15:25 Comment lying 04/20/23 20:00 Intake & Output 04/20/23 04/21/23 04/21/23 23:59 11:59 23:59 Intake Total 240 / 940 Output Total 940 / 1540 200 / 200 Balance -700 / -600 -200 / -200 Intake: Oral 240 / 940 Output: Urine 925 / 1525 200 / 200 Post Void Residual Other: Urine Color Yellow Yellow Urine Appearance Clear Clear Urine Odor None Comment pt does not need to use the restroom at this time Stool Characteristics Soft Voiding Methods Urinal Additional Comments Additional comments: CXR 04/15/23: No acute pulmonary findings. CT head w/o contrast 04/15/23: There is a 9 x 6 millimeter area of hyperdensity in the right basal ganglia region.? May represent small area of hemorrhage versus asymmetric calcification.? Recommend MRI. MRI brain 04/15/23: Area of signal abnormality in the anterior right thalamus which exhibits signal characteristics of acute hemorrhage.? No significant surrounding edema.? No shift.? Recommend repeat CT/MRI scan in 24 hours. CTA brain 04/16/23: 1. CT a brain: Normal CTA examination of the [place]. ? 2. CT head: Small right thalamic hemorrhage.? No evidence of AV malformation. 3. Normal CTA examination of the neck.? CT head #2: 04/16/23: Stable small focal hemorrhage in the region of the right thalamus. No new abnormalities. Echo 04/16/23: Normal left ventricular wall thickness and chamber size.? Estimated ejection fraction is 55 to 60%.? Wall motion is normal Right ventricle is normal in size.? Right ventricular function is grossly normal Both atria are normal in size No intracardiac shunting is identified with injection of agitated saline Trileaflet aortic valve with trace regurgitation CXR 04/17/23: No acute pulmonary findings. CT head 04/19/23: 1. Very slight decrease in size of the hyperdense region in the right basal ganglia. 2. No acute abnormality. PFSH All Active Problems (Updated 04/21/23 @ 16:52 by Akanksha Lay MD) Prediabetes (Acute) Oropharyngeal dysphagia (Acute) Orthostatic hypotension (Acute) Discharge planning issues (Acute) DVT prophylaxis (Acute) Elevated LDL cholesterol level (Acute) Hyperglycemia (Acute) Hypokalemia (Acute) Depression with anxiety (Chronic) BPH with obstruction/lower urinary tract symptoms (Chronic) Syncope and collapse (Acute) HTN (hypertension) (Acute) Hemorrhagic cerebrovascular accident (CVA) (Acute) Medical History Congenital hand deformity GERD (gastroesophageal reflux disease) Surgical History Appendectomy EGD - MAC (10/29/17) Reconstruction right hand Social History Smoking/Tobacco Use Status: Never Smoking risk assessment performed?: Yes Drug use: Never Time Spent with Patient Time Spent with Patient: 70-84 minutes4 Time was spent: preparing to see the patient(eg.review tests), obtaining and/or reviewing separately otained hiistory, ordering medications,tests, procedures, referring, communicating with other health caregivers non medical, indepentently interpreting results, counseling the patient and care coordination
--- NOTE | 2023-04-23 15:45 | INDS_ITS ---
PT Notes Visit Reasons: Hemorrhagic CVA, HTN Physical Therapy Inpatient Discharge Summary Date: 04/21/2023 Dates of service: 04/21/2023 only This is a clinical summary of care provided for the duration of dates listed above. No charge was made in the completion of this documentation. Referring Doctor: Khurram Garcia MD PT Orders: PT CONSULT: Limited ability Precautions: Fall. Standard. Activity as tolerated. Patient Profile/Admitting Diagnosis: Louis is a 62-year-old male who presented to the ED on 04/15/2023 due to a syncopal episode and report of left upper extremity numbness and paresthesias.? He is admitted for management of acute hemorrhagic cerebrovascular accident, syncope and collapse, hypertension, depression and anxiety.? Discharge compicated by hypotensive epsiode with PT referral sent to determine stability of gait and discharge recommendations. PMHX: All Active Problems?(Updated 04/16/23 @ 01:28 by Miguel Deshpande) Depression with anxiety (Chronic) BPH with obstruction/lower urinary tract symptoms (Chronic) Syncope and collapse (Acute) HTN (hypertension) (Acute) Hemorrhagic cerebrovascular accident (CVA) (Acute) Medical History? Congenital hand deformity GERD (gastroesophageal reflux disease) Surgical History? Appendectomy EGD - MAC (10/29/17) Reconstruction right hand Social History/Home Situation: Incarcerated.? Independent with all aspects of ADLs prior to admission.? No previous falls. Equipment Owned/DME: None SUBJECTIVE: NT. See most recent [employer] notes. Objective: General Observation:NT. See most recent [employer] notes. Mental Status: NT. See most recent [employer] notes. Pain: NT. See most recent [employer] notes. Vital Signs: NT. See most recent [employer] notes. ROM: Right Upper Extremity: ? Shoulder Flexion allows up to 90 degrees. Shoulder abduction allows up to 90 degrees.? Elbow flexion WFL. Wrist flexion WFL. Functional opening and closing of hand impaired. Left Upper Extremity:? Shoulder Flexion allows up to 90 degrees. Shoulder abduction allows up to 90 degrees.? Elbow flexion WFL. Wrist flexion WFL. Functional opening and closing of hand WFL. Right Lower Extremity: Hip flexion WFL. Hip abduction WFL. Knee flexion WFL. Ankle dorsiflexion WFL. Ankle plantarflexion WFL. Left Lower Extremity: Hip flexion WFL. Hip abduction WFL. Knee flexion WFL. Ankle dorsiflexion WFL. Ankle plantarflexion WFL. Strength: Right Upper Extremity: Shoulder flexors 3-/5. Shoulder abductors 3-/5. Elbow flexors 4-/5. Elbow extensors 4-/5. Mechanical Insulator limited due to congenital hand deformity. Left Upper Extremity: Shoulder flexors 3-/5. Shoulder abductors 3-/5. Elbow flexors 4/5. Elbow extensors 4/5. Mechanical Insulator strong. Right Lower Extremity: Hip flexors 4/5. Hip abductors 4/5. Knee flexors 5/5. Knee extensors 5/5. Ankle dorsiflexors 4/5. Ankle plantarflexors 4/5. Left Lower Extremity: Hip flexors 4/5. Hip abductors 4/5. Knee flexors 5/5. Knee extensors 5/5. Ankle dorsiflexors 4/5. Ankle plantarflexors 4/5. BED MOBILITY/TRANSFERS? Rolling L/R: independent Supine-sit: independent? Sit-supine: independent ? Sit-stand: independent ? Stand-sit: independent? Bed-Chair: independent ? Chair-bed: independent ? GAIT? Assistive Device: none? Weight bearing: full Assist: standby ? Distance:? 500 feet? Deviation: step length limited by leg irons. Patient reports no dizziness, no lightheadedness; reports feeling fatigue in his legs, reports feeling short of breath in the last 10 feet before his room, needs to sit down at that point. ? Balance: Static Sitting: Normal Dynamic Sitting: Normal Static Standing: Fair Dynamic Standing: Fair Special Tests: Mobility Limitations Standardized Measure [facility] AM-PAC 6 clicks Basic Mobility Inpatient Short Form: Raw Score: 24? CMS Score: 0% deficit? ? ? 30-second chair rise score: 5x Assessment: Independently navigated 500 feet with no physical assistance.? Officers present only because of safety protocol.? Not symptomatic during the afternoon session with [employer]. Goals: Goals X1 week 1. Independent gait on level surface with use of no AD for at least 500 feet WITHOUT report of dizziness MET 2. Independent with home exercise program MET DISCHARGE RECOMMENDATIONS: [X] ? Home with no services.? If hypotension remains unmanaged,? may require stand by assist from correctional facility personnel for safety. [] ? Home with services.? [] ? Home with outpatient PT [] [] ? SNF for continued rehabilitation [] [] ? Shelter Care [] [] ? SNF versus LTC based on ability to participate and progress [] TREATMENT CODE/TIME: [facility] Thank you for the opportunity to participate in the care of this patient. Mariah Drake PT, DPT, CLT [facility] [place], [place]
== END 2023-04-21 17:54 | DRG 65 ==
LOC: ER 22:09 → ICU 23:53 → MS 04-18 15:46
PROVIDERS: Emergency Medicine; Internal Medicine; Student in an Organized Health Care Education/Training Program; Admitting Provider Family Medicine; Emergency Provider Physician Assistant; PCP Nurse Practitioner Adult Health; Visit Provider Family Medicine
DX: I61.8 Other nontraumatic intracerebral hemorrhage (principal); N13.8 Other obstructive and reflux uropathy; Q68.1 Congenital deformity of finger(s) and hand; S00.03XA Contusion of scalp, initial encounter; W18.39XA Other fall on same level, initial encounter; K21.9 Gastro-esophageal reflux disease without esophagitis; I10 Essential (primary) hypertension; F41.8 Other specified anxiety disorders; N40.0 Benign prostatic hyperplasia without lower urinary tract symptoms; R73.03 Prediabetes; G47.30 Sleep apnea, unspecified; E87.6 Hypokalemia; E78.00 Pure hypercholesterolemia, unspecified; R51.9 Headache, unspecified; I95.1 Orthostatic hypotension; R20.2 Paresthesia of skin; R33.9 Retention of urine, unspecified
CPT/HCPCS: 36415; 70496; 70498; 80048; 80053; 80061; 80307; 82550; 82805; 85027; 87637; 90471; 92610; 93005; 93306; 96361; 96365; 96375; 96376; 97116; 97161; 97162; 97165; 97530; 99291; 70450; 70551; 71045; 71046; 81003; 83036; 83735; 84443; 84484; 85025; 85610; 85730; 93010; 99223; 99232; 99233; 99239; J3480; J3490